=== PATIENT | female | born 1940 | race Caucasian/White ===

== ENCOUNTER 2021-07-16 22:20 | Inpatient (IN) | payer MEDICARE ==
[~2021-07-16] VITALS: Ht 149.9 cm; Wt 110.5 kg
--- NOTE | 2021-07-16 22:25 | NUR ---
PT ARRIVED VIA EMS AND TRIAGED IN ROOM. VOMITED UPON ARRIVAL. WAS GIVEN ZOFRAN IN ROUTE.
--- NOTE | 2021-07-16 23:51 | NUR ---
MULTIPLE ATTEMPTS BY STAFF/LAB TO OBTAIN BLOOD AND SECOND IV SITE WITHOUT SUCCESS. WILL HYDRATE WITH IV FROM EMS/ GUAGE AND TRY AGAIN LATER.
[2021-07-17] VITALS (18 sets, daily range): BP systolic 93–156; BP diastolic 47–73
[2021-07-17 00:15] LABS: HEMATOCRIT 43.5 % (37.0-47.0); HEMOGLOBIN 14.4 g/dl (12.0-16.0); IMMATURE GRANULOCYTES 0.2 % (0.0-5.0); MEAN CELL VOLUME 91.2 fL CALC (80.0-100.0); MEAN CORPUSCULAR HGB 30.2 pG CALC (26.0-32.0); MEAN CORPUSCULAR HGB CONC 33.1 g/dL CAL (32.0-36.0); NEUT# 14.96 thou/uL (2.00-7.15); RED BLOOD COUNT 4.77 mill/uL (4.20-5.60); RED CELL DISTRI WIDTH 12.2 % (11.5-15.5)
[2021-07-17 00:29] LABS: ALBUMIN 4.5 g/dL (3.2-5.0); ALKALINE PHOSPHATASE 118 u/l (38-126); AMYLASE 75 u/l (30-110); ANION GAP 17 (6-22 (CALC)); BILIRUBIN, TOTAL 0.7 mg/dL (0.0-1.4); BUN 26 mg/dL (8-23); BUN/CREATININE RATIO 34 (12-20 (CALC)); CARBON DIOXIDE 24 mmol/l (22-30); CHLORIDE 103 mmol/l (95-108); CREATININE 0.8 mg/dL (0.5-1.0); GFR > 60 ML/MIN (>=60 (CALC)); GFR FOR AFR.AMER. > 60 ML/MIN (>=60 (CALC)); LIPASE 43 u/l (23-300); POTASSIUM 4.1 mmol/l (3.5-5.1); SGOT/AST 30 u/l (9-36); SODIUM 140 mmol/l (137-146)
--- NOTE | 2021-07-17 01:00 | NUR ---
PT STARTED WITH ORAL CONTRAST.
--- NOTE | 2021-07-17 01:30 | NUR ---
SECOND DOSE GIVEN. TOLERATING WELL.
--- NOTE | 2021-07-17 02:00 | NUR ---
UNABLE TO TAKE CONTRAST DO TO PAIN AND NAUSEA. NOTIFIED.
--- NOTE | 2021-07-17 02:30 | NUR ---
SECOND DOSE OF CONTRAST GIVEN.
--- NOTE | 2021-07-17 02:30 | NUR ---
PT WAS OFFERED PAIN MEDICATION...PT DECLINED. GIVEN PHENERGAN/PROTONIX.
--- NOTE | 2021-07-17 04:50 | NUR ---
2ND IV SITE OBTAINED AND 2ND BLOOD CULTURE/LACTIC/BLOOD TOP OBTAINED. PT RESTING. NAD. PT WILL BE GOING TO FLOOR.
--- NOTE | 2021-07-17 05:20 | NUR ---
PATIENT ADMITTED TO [facility] ROOM 270 VIA STRETCHER. ALERT AND ORIENTED. ABLE TO MAKE NEEDS KNOWN. ASSESSMENT COMPLETE AT THIS TIME. ORIENTED PATIENT TO ROOM, CALL LIGHT AND TV. PATIENT NPO STATUS. CALL LIGHT AND BELONGINGS IN REACH.
--- NOTE | 2021-07-17 05:50 | NUR ---
PT RESTING...TAKEN TO FLOOR. REPORT GIVEN TO DELMI DONNELLY/MED SURG AFTER PT ARRIVED TO FLOOR. COLORING MACHINE OPERATOR TO BRING ZOSYN TO FLOOR. PT ON POCKET MONITOR.
[2021-07-17 06:13] LABS: ACT PARTIAL THROMBO TIME 22.6 SECONDS (20.0-32.5); PROTHROMBIN TIME 10.1 SECONDS (9.0-12.5)
--- NOTE | 2021-07-17 07:32 | NUR ---
PT TAKEN VIA STRETCHER ACCOMPANIED BY Obdulia TOVAR AND MARTINEZ RN. PT NAUSEOUS & DRY HEAVING. X2 IV SITES; #22G RH-EMS SITE AND #22G LT THUMB. FAMILY UPDATED ON SURGERY; FAMILY MEMBERS WITH CONCERNS REGARDING PROCEDURE. C ALETHA RN IN OR NOTIFIED AND FAMILY PHONE NUMBER PROVIDED , OR STAFF/MD TO CALL FAMILY PRIOR TO SURGICAL PROCEDURE.
--- NOTE | 2021-07-17 10:08 | NUR ---
PT TO BE TRANSFERRED TO ICU BED8 POST-OP. REPORT GIVEN TO DAVEY AWAD.
--- NOTE | 2021-07-17 11:30 | NUR ---
PERSONAL BELONGINGS TAKEN TO ICU BED 8; UPPER AND LOWER DENTURES ALSO IN DENTURE CUP LEFT IN ROOM. TRANSFER ORDER FAXED TO REC
--- NOTE | 2021-07-17 11:30 | NUR ---
PT ARRIVED FROM OR, BEDSIDE REPORT FROM RN, VSS, PT INTUBATED AND SEDATED, RT AT BEDSIDE TO MANAGE VENT, PT PLACED ON MONITOR, NO S/S OF DISTRESS NOTED. LEGER IN PLACE DRAINING TO GRAVITY, [address], SURGICAL SITE DRESSING TO ABDOMEN CLEAN DRY AND INTACT.
--- NOTE | 2021-07-17 13:14 | NUR ---
CALLED AND UPDATED CHARLOTTE PATEL AT [phone] ON PT CONDITION
[2021-07-17 13:18] LABS: HEMATOCRIT 42.6 % (37.0-47.0); HEMOGLOBIN 13.7 g/dl (12.0-16.0); IMMATURE GRANULOCYTES 0.1 % (0.0-5.0); MEAN CELL VOLUME 92.8 fL CALC (80.0-100.0); MEAN CORPUSCULAR HGB 29.8 pG CALC (26.0-32.0); MEAN CORPUSCULAR HGB CONC 32.2 g/dL CAL (32.0-36.0); NEUT# 6.94 thou/uL (2.00-7.15); RED BLOOD COUNT 4.59 mill/uL (4.20-5.60); RED CELL DISTRI WIDTH 12.6 % (11.5-15.5)
[2021-07-17 13:40] LABS: ALKALINE PHOSPHATASE 59 u/l (38-126); ANION GAP 9 (6-22 (CALC)); BUN 20 mg/dL (8-23); BUN/CREATININE RATIO 35 (12-20 (CALC)); CARBON DIOXIDE 24 mmol/l (22-30); CHLORIDE 111 mmol/l (95-108); CREATININE 0.6 mg/dL (0.5-1.0); GFR > 60 ML/MIN (>=60 (CALC)); GFR FOR AFR.AMER. > 60 ML/MIN (>=60 (CALC)); POTASSIUM 3.6 mmol/l (3.5-5.1); SGOT/AST 36 u/l (9-36); SODIUM 140 mmol/l (137-146)
[2021-07-17 13:42] LABS: ALBUMIN 2.5 g/dL (3.2-5.0); BILIRUBIN, TOTAL 1.2 mg/dL (0.0-1.4)
--- NOTE | 2021-07-17 13:45 | NUR ---
PT SON AT BEDSIDE FOR VISIT, UPDATED HIM ON PT CONDITION
--- NOTE | 2021-07-17 14:11 | NUR ---
UNABLE TO OBTAIN MED LIST. PT IS FROM [place], FAMILY UNABLE TO ANSWER QUESTIONS ABOUT MEDS, DID NOT SUPPLY A LIST OR PHARMACY WHERE PT FILLS, AND PT IS CURRENTLY INTUBATED. GINNY GONZALEZ.
--- NOTE | 2021-07-17 15:05 | NUR ---
AT BEDSIDE. STATED TO CALL HIM BEFORE STARTING ANY VASOPRESSORS.
--- NOTE | 2021-07-17 15:45 | NUR ---
KUMAR GROSS ROUNDING AT BEDSIDE
--- NOTE | 2021-07-17 19:15 | NUR ---
remains sedated. vent cont assisted by pt. open hearth stockyard supervisor shows sinus rhythm hr 91. ivf infusing per rt subcl tlc. ntg conts to lis draining tea colored. abd dsg cdi. no bowel sounds. katty x3 in place. escalante cath in place. urine dk yellow. bilat scds, wrist restraints & fall precautions cont. turned & repositioned. requires total care for all needs.
--- NOTE | 2021-07-17 21:00 | NUR ---
urine spec collected & sent to lab. urometer placed.
[2021-07-17 21:24] LABS: URINE BILIRUBIN - DIPSTICK NEGATIVE (NEGATIVE); URINE BLOOD DIPSTICK TRACE-INTACT (NEGATIVE); URINE COLOR YELLOW; URINE GLUCOSE - DIPSTICK NEGATIVE (NEGATIVE); URINE KETONE NEGATIVE (NEGATIVE); URINE LEUK ESTERASE NEGATIVE (NEGATIVE); URINE PH 5.5 (4.5-8.0); URINE PROTEIN - DIPSTICK NEGATIVE (NEG-TRACE); URINE SPECIFIC GRAVITY >=1.030; URINE UROBILINOGEN - DIPSTICK 0.2 E.U./dL (0.2)
[2021-07-17 21:26] LABS: URINE NITRITE - DIPSTICK NEGATIVE (Negative)
[2021-07-18] VITALS (14 sets, daily range): BP systolic 89–129; BP diastolic 42–61
--- NOTE | 2021-07-18 00:01 | NUR ---
cont to have minimal uop. ivf cont. no distress. speech and drama teacher shows sinus rhythm pvcs hr 78.
--- NOTE | 2021-07-18 01:00 | NUR ---
bp 89/50. prop decreased to 15mcg/kg/min
--- NOTE | 2021-07-18 02:00 | NUR ---
vent cont assisted by pt. arouses easily. nodding appropriately to questions asked.
--- NOTE | 2021-07-18 04:30 | NUR ---
blood drawn & sent to lab.
--- NOTE | 2021-07-18 05:00 | NUR ---
bath & linen change x2 assists. follows basic commands. no distress.
[2021-07-18 05:15] LABS: IMMATURE GRANULOCYTES 0.3 % (0.0-5.0); MEAN CELL VOLUME 94.5 fL CALC (80.0-100.0); MEAN CORPUSCULAR HGB 30.5 pG CALC (26.0-32.0); MEAN CORPUSCULAR HGB CONC 32.2 g/dL CAL (32.0-36.0); NEUT# 16.15 thou/uL (2.00-7.15); RED BLOOD COUNT 3.84 mill/uL (4.20-5.60)
[2021-07-18 05:24] LABS: HEMATOCRIT 36.3 % (37.0-47.0); HEMOGLOBIN 11.7 g/dl (12.0-16.0)
--- NOTE | 2021-07-18 05:30 | NUR ---
rt here. abgs drawn.
[2021-07-18 05:32] LABS: ALBUMIN 2.1 g/dL (3.2-5.0); ALKALINE PHOSPHATASE 41 u/l (38-126); ANION GAP 10 (6-22 (CALC)); BILIRUBIN, TOTAL 0.8 mg/dL (0.0-1.4); BUN 26 mg/dL (8-23); BUN/CREATININE RATIO 25 (12-20 (CALC)); CARBON DIOXIDE 21 mmol/l (22-30); CHLORIDE 114 mmol/l (95-108); GFR 53 ML/MIN (>=60 (CALC)); GFR FOR AFR.AMER. > 60 ML/MIN (>=60 (CALC)); MAGNESIUM 1.7 mg/dL (1.6-2.3); POTASSIUM 3.7 mmol/l (3.5-5.1); SGOT/AST 26 u/l (9-36); SODIUM 142 mmol/l (137-146); TOTAL PROTEIN 4.4 g/dL (6.3-8.2)
--- NOTE | 2021-07-18 05:45 | NUR ---
xray here. pcxr obtained.
--- NOTE | 2021-07-18 06:35 | NUR ---
blood drawn & sent to lab.
--- NOTE | 2021-07-18 06:51 | NUR ---
FIO2 DECREASED TO 30%
--- NOTE | 2021-07-18 07:10 | NUR ---
pt report received from echo technologist. pt responding to questions, denies any pain at this time. diprovan still infusing at 7.5, pt remains on vent, resp tech lowered settings on vent, pt at 100%, b/p staying in the lower 100's, 3 katty drains draining, dressing dry. will continue to moniter.
--- NOTE | 2021-07-18 08:14 | NUR ---
dr. colvin here to examine pt. state to extubate pt, and to give bolus for blood pressure and then will change fluids to d5. pt alert/oriented.
--- NOTE | 2021-07-18 08:37 | NUR ---
PT. EXTUBATED AND PLACED ON 2L.
--- NOTE | 2021-07-18 08:37 | NUR ---
PT EXTUBATED AND PT TOLERATED WELL, RESTRAINED DISCONTINUED. PT ALERT/ORIENTED, ADVISED THAT WE WILL KEEP HER NPO FOR SEVERAL MORE DAYS PER DR. PT VOICES UNDERSTANDING.
--- NOTE | 2021-07-18 08:54 | NUR ---
ANGEL COLE HERE TO EXAMINE PT.
--- NOTE | 2021-07-18 12:00 | NUR ---
pt becoming slightly restless, hands moving constantly, states she cant get comfortable, states ng tube is irritating and wants it out. moved pt up in bed, gave pt warm blankets, placed a different nose attachemnt on ng tube, pt remains restless.
[2021-07-18] MEDS ORDERED: LOSARTAN POTASS50 MG PO (13:29)
[2021-07-18] MEDS ORDERED: GABAPENTIN100 MG PO (13:29)
[2021-07-18] MEDS ORDERED: FUROSEMIDE20 MG PO (13:30)
--- NOTE | 2021-07-18 13:35 | NUR ---
son in law at bedside, medications brought in and reconcilled. pt states he has taken her mind off of nose/throat irritation. not as restless as before, vital signs remain stable., no n/v, no distress noted.
--- NOTE | 2021-07-18 15:31 | NUR ---
pt resting at this time, no complaints, pt has been constantly on phone
--- NOTE | 2021-07-18 17:00 | NUR ---
pt states painis getting worse in abdomin, especially with movement. 0.5 mg dilaudid given, vital signs stable
--- NOTE | 2021-07-18 18:19 | NUR ---
PT RESTING QUIETLY AT THIS TIME. IV FLUIDS INFUSING, LEGER DRAINING. MINIMAL AMOUNT OF BLOOD FROM 3 JEAN DRAINS, AND NG TUBE IS DRAINING TEA COLOR,MINIMAL AMOUNT ON INTERMITTENT SUCTION.
--- NOTE | 2021-07-18 18:49 | NUR ---
SOUTHAR RECEIVED FROM DELMI BEARDEN. PATIENT IN BED TALKING ON PHONE.
--- NOTE | 2021-07-18 20:15 | NUR ---
ASSESSMENT COMPLETE. PATIENT AWAKE, ALERT AND ORIENTED TO PERSON AND TIME. PATIENT MILDLY CONFUSED BUT EASILY REDIRECTED. DENIES PAIN AT THIS TIME. JEAN DRAINS X3 EMPTIED. ABDOMINAL DRESSING CLEAN, DRY AND INTACT. SCD'S BILATERALLY. BED IN LOW POSITION, LOCKED. CALL LIGHT WITHIN REACH, INSTRUCTED ON USE AND TO CALL FOR ASSISTANCE WHEN NEEDED.
--- NOTE | 2021-07-18 22:31 | NUR ---
RESTING QUIETLY, EYES CLOSED. VSS, SATURATION 94% ROOM AIR.
[2021-07-19] VITALS (11 sets, daily range): BP systolic 98–158; BP diastolic 46–82
--- NOTE | 2021-07-19 00:03 | NUR ---
PATIENT RESTING QUIETLY. MIDNIGHT MEDS ADMINISTERED. PATIENT DENIES PAIN AT THIS TIME. NO DISTRESS NOTED. CALL LIGHT WITHIN REACH.
--- NOTE | 2021-07-19 01:21 | NUR ---
PATIENT CALLING OUT FOR HELP, C/O DRY MOUTH. ORAL CARE PROVIDED AND LIP BALM APPLIED.
[2021-07-19 04:44] LABS: IMMATURE GRANULOCYTES 0.5 % (0.0-5.0); MEAN CELL VOLUME 94.3 fL CALC (80.0-100.0); MEAN CORPUSCULAR HGB 30.1 pG CALC (26.0-32.0); MEAN CORPUSCULAR HGB CONC 31.9 g/dL CAL (32.0-36.0); NEUT# 13.46 thou/uL (2.00-7.15); RED BLOOD COUNT 3.16 mill/uL (4.20-5.60); RED CELL DISTRI WIDTH 13.5 % (11.5-15.5)
[2021-07-19 04:45] LABS: HEMATOCRIT 29.8 % (37.0-47.0); HEMOGLOBIN 9.5 g/dl (12.0-16.0)
--- NOTE | 2021-07-19 04:48 | NUR ---
PATIENT APPEARS ANXIOUS, STATES SHE IS HAVING DIFFICULTY BREATHING. PATIENT 98% ON 2L/NC, LUNGS SOUND CLEAR. PATIENT HAS HISTORY OF CHF, IVF DECREASED TO 50ML/HR FROM 125/HR. WILL CONTINUE TO MONITOR.
[2021-07-19 05:08] LABS: ANION GAP 7 (6-22 (CALC)); BUN 34 mg/dL (8-23); BUN/CREATININE RATIO 33 (12-20 (CALC)); CARBON DIOXIDE 24 mmol/l (22-30); CHLORIDE 114 mmol/l (95-108); GFR 53 ML/MIN (>=60 (CALC)); GFR FOR AFR.AMER. > 60 ML/MIN (>=60 (CALC)); MAGNESIUM 1.9 mg/dL (1.6-2.3); POTASSIUM 3.6 mmol/l (3.5-5.1); SODIUM 142 mmol/l (137-146)
--- NOTE | 2021-07-19 06:50 | NUR ---
ASSUMED CARE OF PT FROM MEGAN AWAD, VSS, PT RESTING IN BED, NO S/S OF DISTRESS NOTED. DENIES ANY CURRENT NEEDS
--- NOTE | 2021-07-19 08:31 | NUR ---
PT MEDICATED FOR PAIN, PT C/O FEELING SOB BUT UPON FURTHER DISSCUSSION SHE IS NOT DEEP BREATHING, COUGHING FOR FEAR OF PAIN TO ABDOMEN,APPEARS ANXIOUS. EDUCATED ON IMPORTANCE OF DEEP BREATHING AFTER SURGERY. WILL HAVE RT PROVIDE INCENTIVE SPIROMETER. ALSO DEMONSTRATED WITH PT THE SPLINTING TECHINQUE OF COUGHING WITH PILLOW AGAINST SURGICAL SITE. ROUNDING AT BEDSIDE.
--- NOTE | 2021-07-19 09:29 | NUR ---
RADIOLOGY AT BEDSIDE FOR CHEST XRAY
--- NOTE | 2021-07-19 10:20 | NUR ---
UPDATED DAUGHTER IN LAW VIA TELEPHONE
--- NOTE | 2021-07-19 11:53 | NUR ---
PT IS CONFUSED. SHE BELIEVES SHE IS IN SOMEONES HOME, THAT HER MONEY IS MISSING, DOESNT REMEMBER HAVING SURGERY AND IS AFRAID HER FAMILY HAS PLACED HER IN A PENITENTIARY. ATTEMPS TO REORIENT PT UNSUCCESSFUL
--- NOTE | 2021-07-19 12:30 | NUR ---
PT DAUGHTER IN LAW AT BEDSIDE TO HELP CALM AND REORIENT PT.
--- NOTE | 2021-07-19 14:00 | NUR ---
DAUGHTER IN LAW, SULAIMAN, TOOK PT CELL PHONE HOME TO CHARGE
--- NOTE | 2021-07-19 14:10 | NUR ---
DAUGHTER IN LAW LEFT. PT IS CALM, ORIENTED TO PERSON, PLACE AND TIME. RESTING IN BED. DENIES NEEDS
--- NOTE | 2021-07-19 16:31 | NUR ---
DR.FIORUCCI HILL AT BEDSIDE, REMOVED NG TUBE.
--- NOTE | 2021-07-19 18:05 | NUR ---
PT HAS BECOME INCREASINGLY CONFUSED AND COMBATIVE THROUGHOUT THE AFTERNOON DESIPITE REPEATED MEASURES OF REORIENTATION, REPOSITIONING AND REASSURANCE. PT INSISTED PEOPLE WERE OUTSIDE HER ROOM THAT SHE KNEW AND TO LET THEM IN TO SEE HER. WHEN I EXPLAINED IT WAS JUST STAFF AND NOT FAMILY OUTSIDE OF HER RROM SHE CALLED ME A "LYING BITCH" AND THREW A CUP ICE IN MY FACE. NOTIFIED KUMAR MERCADO OF PTS INCREASING AGITATION. ORDERS RECIEVED AND ENTERED.
--- NOTE | 2021-07-19 18:50 | NUR ---
SBAR REPORT RECEIVED FROM DELMI MARISCAL. PATIENT RESTING QUIETLY IN BED.
--- NOTE | 2021-07-19 20:22 | NUR ---
ASSESSMENT COMPLETE. PATIENT DROWSY, AROUSED BY VOICE. VSS. NO DISTRESS NOTED. DENIES PAIN. ABDOMINAL DRESSING CLEAN DRY AND INTACT, JEAN DRAINS X3 PATENT. LEGER TO GRAVITY, CLEAR KHUSHI URINE. SCD'S BILATERALLY. NO C/O PAIN AT THIS TIME. BED IN LOW POSITION, LOCKED. CALL LIGHT WITHIN REACH.
--- NOTE | 2021-07-19 23:53 | NUR ---
COMPLETE BED BATH WITH LINEN CHANGE PROVIDED, PATIENT TOLERATED FAIR. SMALL SMEAR OF STOOL ON PAD BUT NO BM. JEAN DRAINS X3 EMPTIED. 875ML CLEAR KHUSHI URINE EMPTIED FROM LEGER. PATIENT REPOSITIONED FOR COMFORT. BED IN LOW POSITION, LOCKED. DENIES PAIN AT THIS TIME. CALL LIGHT WITHIN REACH.
[2021-07-20] VITALS (12 sets, daily range): BP systolic 118–180; BP diastolic 47–91
--- NOTE | 2021-07-20 01:33 | NUR ---
PATIENT AGITATED. PULLING AT MONITOR CORDS AND YELLING AT NURSE. PATIENT ALSO YELLS OUT IN PAIN STATING HER BACK HURTS. RATES PAIN 15 ON PAIN SCALE 0-10, DILAUDID 1MG GIVEN. OFFERED TO REPOSITION FOR COMFORT, PATIENT DECLINED OFFER AT THIS TIME.
[2021-07-20 04:36] LABS: HEMATOCRIT 26.3 % (37.0-47.0); HEMOGLOBIN 8.4 g/dl (12.0-16.0); IMMATURE GRANULOCYTES 0.6 % (0.0-5.0); MEAN CELL VOLUME 94.6 fL CALC (80.0-100.0); MEAN CORPUSCULAR HGB 30.2 pG CALC (26.0-32.0); MEAN CORPUSCULAR HGB CONC 31.9 g/dL CAL (32.0-36.0); NEUT# 12.41 thou/uL (2.00-7.15); RED BLOOD COUNT 2.78 mill/uL (4.20-5.60); RED CELL DISTRI WIDTH 13.6 % (11.5-15.5)
--- NOTE | 2021-07-20 04:36 | NUR ---
RESTING QUIETLY. CALL LIGHT WITHIN REACH.
[2021-07-20 05:01] LABS: ANION GAP 6 (6-22 (CALC)); BUN 29 mg/dL (8-23); BUN/CREATININE RATIO 38 (12-20 (CALC)); CARBON DIOXIDE 27 mmol/l (22-30); CHLORIDE 114 mmol/l (95-108); CREATININE 0.8 mg/dL (0.5-1.0); GFR > 60 ML/MIN (>=60 (CALC)); GFR FOR AFR.AMER. > 60 ML/MIN (>=60 (CALC)); MAGNESIUM 2.1 mg/dL (1.6-2.3); POTASSIUM 3.3 mmol/l (3.5-5.1); SODIUM 145 mmol/l (137-146)
--- NOTE | 2021-07-20 05:11 | NUR ---
PATIENT WOKE FROM SLEEP AGITATED. PULLING OFF GOWN AND PULLING MEDICAL EQUIPMENT CORDS. PATIENT UPSET STATING "I GOT TO GET OUT OF HERE. YOU CAN'T KEEP ME AGAINST MY WILL." ATTEMPT TO DE-ESCALATE AND RE-ORIENT PATIENT WHICH SHE THEN RESPONDED "DON'T TALK TO ME YOU EVIL WITCH." PATIENT GIVEN ATIVAN AT THIS TIME. WILL CONTINUE TO MONITOR.
--- NOTE | 2021-07-20 06:05 | NUR ---
report received from Wyatt Harris RN
--- NOTE | 2021-07-20 06:20 | NUR ---
pt resting in bed with eyes closed; easily aroused to verbal stimuli; appears drowsy; assessment completed at this time; pt alert to person; pt alert to situation/ states "had surgery"; confused to time and place; calm and cooperative at this time; pt moans loudly; admits to pain, will medicate; no n/v noted per underwriter mortgage loan; resp even and unlabored; lungs clear/ diminished post bases; skin color wnl; o2 per nc 2L; hr reg; strong pulses; no edema noted; sr on monitor; abd soft/ tender with bs hypoactive to rlq/ruq; no bm noted per underwriter mortgage loan; no flatus witnessed at this time; escalante to gravity draining clear yellow urine; cath strap intact; TLC patent to right subclav; tpn infusing at 84cc/hr and ns at 16cc/hr; all lumens flushed/brisk blood aspirate noted; no redness or edema noted at site; dressing cdi to abd/ unable to assess incision; katty x3 intact to bulb suction with serosang drainage noted; bilat scds intact; repositioned; call light within reach; will continue to monitor
--- NOTE | 2021-07-20 07:12 | NUR ---
pt awake in bed; moaning loudly; manual writer inquires if pt is in pain; pt admits to pain but does not states #; repositioned; medicated; pt also noted to have remove gown and pulling at director of cardiac cath lab; redirected; sr on monitor; escalante to gravity; call light within reach; will continue to monitor
--- NOTE | 2021-07-20 08:35 | NUR ---
Dr Huerta and Dr Allison present at bedside to assess pt and discuss plan of care; dressing to be changed per verbal order; will continue to monitor
--- NOTE | 2021-07-20 08:48 | NUR ---
granddaughter Tatiana called this script writer; passcode verified; update provided
--- NOTE | 2021-07-20 09:15 | NUR ---
dressing changed to abd; midline line incision noted well approximated with jevon intact; no s/s of infection; no redness or drainage noted at incision; KATTY #1 to RLQ, KATTY #2 to RUQ, KATTY #3 to left upper abdomen; all drained as per orders; jevon intact to ruq, lat of katty site; dressing changed using 4x4 to midline incision, drain dressings to katty sites and secured with paper tape; legs repositioned; will continue to monitor
--- NOTE | 2021-07-20 10:10 | NUR ---
resting in bed with eyes closed; drowsy but easily arousable; offers no complaints; iv intact; escalante to gravity; sr on monitor; will continue to monitor
--- NOTE | 2021-07-20 10:47 | NUR ---
unable to add lactic acid to am labs; orders placed for lactic acid to be obtained in am
--- NOTE | 2021-07-20 12:15 | NUR ---
pt awake in bed; yelling loudly; stating "get it off of me"; pt crying and yelling; reorientation unsuccessful; pt has removed pulse ox probe and reeling machine setup operator; pt pulling at JEAN drains; pt strikes at this time abstract writer when attempting to reapply monitoring attachments; abstract writer remains at bedside for pt safety; monitoring attachments explained; call light within reach; will continue to monitor
--- NOTE | 2021-07-20 12:23 | NUR ---
Dr Huerta called per designer/writer; informed of pt increased agitation; pt becoming combative with designer/writer; ativan to be administered as well as zyprexa; pt yelling very loudly; pt has removed surgical dressing and pulling on JEAN drains; will continue to monitor
--- NOTE | 2021-07-20 12:45 | NUR ---
drowsy but arousable; continues to yell; dressing changed to midline incision and ruq katty site; katty's remains intact with sutures; abd binder placed at this time to assist with diversion of drains; repositioned to left side; ticket writer remains at bedside
--- NOTE | 2021-07-20 13:03 | NUR ---
ice chips provided and tolerated well; staff x2 attempting to assist to chair; pt declining; will attempt again
--- NOTE | 2021-07-20 13:21 | NUR ---
visitor present at bedside
--- NOTE | 2021-07-20 14:10 | NUR ---
awake; drowsy; so departed; iv intact and patent; escalante to gravity; sr/pvc on monitor; call light within reach; will continue to monitor
--- NOTE | 2021-07-20 14:50 | NUR ---
PT x2 at bedside to assist with activity/assist to chair; pt refused therapy
--- NOTE | 2021-07-20 15:40 | NUR ---
awake in bed; alert to person and whereabouts; admits to pain; requesting pain meds; increase in activity explained in great detail including risk of pneumonia by just staying in bed; pt agree with this telegraphic typewriter operator to be assisted to recliner; pt educated on pain and discomfort she may experience with activity and agree to plan of care; bottom dentures discovered in bed and placed in denture cup; pt to be assisted to recliner then medicated; will continue to monitor
--- NOTE | 2021-07-20 15:50 | NUR ---
pt assisted to recliner x2 max assist, pt id not assist with transfer; monitoring attachments connected; medicated with dilaudid as per request; will continue to monitor
--- NOTE | 2021-07-20 17:35 | NUR ---
Patient was very confused on this date and had difficulty keeping eyes open. Patient also had extreme difficulty speaking but was eventually able to say that she was not up to participating in PT. Based on patient's present predicament, PT will try to see patient again tomorrow.
--- NOTE | 2021-07-20 18:20 | NUR ---
pt max assist back to med; monitoring attachments applied; escalante to gravity; sr/pvc on monitor;
--- NOTE | 2021-07-20 19:45 | NUR ---
drowsy. secured entrance monitor shows sinus rhythm pvcs hr 78. bowel sounds hypoactive. dsg cdi. abd binder conts. katty x3 in place. escalante cath in place. urine clear yellow. bilat scds cont. turned & repositioned. does NOT assist with care.
--- NOTE | 2021-07-20 21:30 | NUR ---
awake. yelling out "you're trying to kill me." pt reoriented without success. pt returns to sleep after few minutes.
[2021-07-21] VITALS (12 sets, daily range): BP systolic 102–175; BP diastolic 48–89
--- NOTE | 2021-07-21 00:01 | NUR ---
sleeps for short while then awakens & begins to scream. turned & repositioned. pt yelling out "you're killing me." denies op pain. pt reassured.
--- NOTE | 2021-07-21 02:00 | NUR ---
resting quietly. no distress. spray drier operator helper shows sinus rhythm pvcs hr 92.
--- NOTE | 2021-07-21 04:45 | NUR ---
blood drawn & sent to lab.
[2021-07-21 05:22] LABS: HEMATOCRIT 27.1 % (37.0-47.0); HEMOGLOBIN 8.7 g/dl (12.0-16.0); IMMATURE GRANULOCYTES 0.8 % (0.0-5.0); MEAN CELL VOLUME 94.1 fL CALC (80.0-100.0); MEAN CORPUSCULAR HGB 30.2 pG CALC (26.0-32.0); MEAN CORPUSCULAR HGB CONC 32.1 g/dL CAL (32.0-36.0); NEUT# 11.95 thou/uL (2.00-7.15); RED BLOOD COUNT 2.88 mill/uL (4.20-5.60); RED CELL DISTRI WIDTH 13.3 % (11.5-15.5)
--- NOTE | 2021-07-21 05:30 | NUR ---
bath & linen change x2 assists.
[2021-07-21 05:33] LABS: ANION GAP 8 (6-22 (CALC)); BUN 26 mg/dL (8-23); BUN/CREATININE RATIO 38 (12-20 (CALC)); CARBON DIOXIDE 31 mmol/l (22-30); CHLORIDE 108 mmol/l (95-108); CREATININE 0.7 mg/dL (0.5-1.0); GFR > 60 ML/MIN (>=60 (CALC)); GFR FOR AFR.AMER. > 60 ML/MIN (>=60 (CALC)); MAGNESIUM 1.9 mg/dL (1.6-2.3); POTASSIUM 3.2 mmol/l (3.5-5.1); SODIUM 144 mmol/l (137-146)
--- NOTE | 2021-07-21 08:00 | NUR ---
pt awake in bed; no apparent distress noted; pt offers no complaints; pt alert and oriented; very pleasant and cooperative; denies pain; no n/v noted; resp even and unlabored; wheezing throughout noted; skin color wnl; o2 per nc at 2L; manager review dry cough noted; IS at bedside; pt educated on use and able to pull 500ml max X10 reps; pt instructed to use q1hr x10 reps; hr reg; strong pulses; trace edema noted to hands and ankles; sr/pvc on monitor; abd soft with bs present; no bm noted per web content writer; pt admits to passing flatus; ice chips provided; escalante to gravity draining clear yellow urine; cath strap intact; TLC patent to right subclavian; tpn infusing at 84cc/hr; no redness or edema noted at site; abd dressing changed using 4x4, drain gauzes and paper tape; jevon intact to midline with no s/sx of infection noted; well approximated; JEAN x3 intact with sutures; scds removed at this time; pt assisted to recliner x3 max assist; pt was able to assist more with transfer this am; call light within reach; will continue to monitor
--- NOTE | 2021-07-21 09:08 | NUR ---
awake in recliner; offers no complaints; denies pain; meds explained and administered; pt able to pull 500ml on IS with poor effort; sr/pvc on monitor; call light within reach; will continue to monitor
--- NOTE | 2021-07-21 09:15 | NUR ---
Dr Holder present at bedside to assess pt and discuss plan of care
--- NOTE | 2021-07-21 09:51 | NUR ---
prn bronchdlator therapy called for as per pt c audible wheeze in upper airways. spo2 on 2l nc = 100, good aeration ascultated throughout with bilateral bases diminished. wheeze ascultated over pt throat. pt speaking in complete sentences and laughing.
--- NOTE | 2021-07-21 10:14 | NUR ---
awake in recliner; continues with wheezing after neb tx; o2 sat 98%; cxr to be obtained; escalante to gravity; pt becoming slightly agitated; sr/pvc on monitor; escalante to gravity; will continue to monitor
--- NOTE | 2021-07-21 10:30 | NUR ---
awake in recliner; yelling/screaming; pt states "you bitches are trying to kill me", you're killing me, you're killing me; pt states "i'm hurting"; telegraphic typewriter installer attempt to medicated pt; pt grab this telegraphic typewriter installer's hand and squeeze tightly then proceeds to pull at central line; additional staff in room; medicated as per orders for complaints of pain; telegraphic typewriter installer remains at bedside; st on monitor;
--- NOTE | 2021-07-21 10:42 | NUR ---
xray present at bedside
--- NOTE | 2021-07-21 11:25 | NUR ---
awake in recliner; conversing amongst self; cooperative with care at this time; JEAN #2 removed per MD orders; pt tolerated well; dressing applied over site; accucheck obtained; meal provided; iv intact and patent; will continue to monitor
--- NOTE | 2021-07-21 12:00 | NUR ---
awake in recliner; offers no complaints; denies pain; iv intact intact and patent; escalante to gravity; sr/pvc on monitor; call light within reach; will continue to monitor
--- NOTE | 2021-07-21 13:00 | NUR ---
visitor present at bedside
--- NOTE | 2021-07-21 14:03 | NUR ---
resting in recliner; offers no complaints; no apparent distress noted; iv intact and patent; escalante to gravity; sr/pvc on monitor; call light within reach; will continue to monitor
--- NOTE | 2021-07-21 15:01 | NUR ---
pt yelling out "help me, help me"; pt admits to hurting "really bad"; opt unable to give this residential mortgage underwriter a score; medicated as per orders; staff attempting tpo place pt back to bed but pt refusing; sr on monitor; escalante to gravity; will continue to monitor
--- NOTE | 2021-07-21 15:07 | NUR ---
report called to Sonam Shaffer RN; pt to transfer to room 280 tele;
--- NOTE | 2021-07-21 15:51 | NUR ---
pt to remain in ICU as overflow;
--- NOTE | 2021-07-21 16:00 | NUR ---
pt transferred back to bed x3 max assist; pt made no attempt to assist staff
--- NOTE | 2021-07-21 16:18 | NUR ---
resting in bed with eyes closed; no distress noted; resp even and unlabored; iv intact and patent; escalante to gravity; sr/pvc on monitor; o2 per nc; call light within reach; will continue to monitor
--- NOTE | 2021-07-21 18:12 | NUR ---
pt awake in bed; no distress noted; moans out occasionally; deny needs for pain meds; iv intact and patent; escalante to gravity; declined meal at this time; abd binder intact; dressing cdi to abd; katty's intact; call light within reach
--- NOTE | 2021-07-21 19:30 | NUR ---
awake. confused. o2 cont per nc. court recording monitor shows sinus rhythm pvcs hr 81. rt subcl tlc in place. tpn infusing @ 84cchr. dsg cdi. abd binder cont. katty x2 in place. escalante cath in place. urine clear yellow. bilat scds & fall precautions cont.
--- NOTE | 2021-07-21 20:30 | NUR ---
confused. yelling out "help me." attempted to reorient w/o success
[2021-07-22] VITALS (11 sets, daily range): BP systolic 131–201; BP diastolic 57–80
--- NOTE | 2021-07-22 00:01 | NUR ---
talking as if to someone in the room. classroom monitor shows sinus rhythm pvcs.
--- NOTE | 2021-07-22 02:00 | NUR ---
naps for short intervals. remains confused. ivf cont.
--- NOTE | 2021-07-22 04:30 | NUR ---
blood drawn & sent to lab.
[2021-07-22 04:50] LABS: HEMATOCRIT 26.2 % (37.0-47.0); HEMOGLOBIN 8.6 g/dl (12.0-16.0); IMMATURE GRANULOCYTES 1.6 % (0.0-5.0); MEAN CELL VOLUME 93.9 fL CALC (80.0-100.0); MEAN CORPUSCULAR HGB 30.8 pG CALC (26.0-32.0); MEAN CORPUSCULAR HGB CONC 32.8 g/dL CAL (32.0-36.0); NEUT# 9.79 thou/uL (2.00-7.15); RED BLOOD COUNT 2.79 mill/uL (4.20-5.60); RED CELL DISTRI WIDTH 13.2 % (11.5-15.5)
[2021-07-22 05:03] LABS: ALBUMIN 2.3 g/dL (3.2-5.0); ANION GAP 3 (6-22 (CALC)); BILIRUBIN, TOTAL 0.8 mg/dL (0.0-1.4); BUN 22 mg/dL (8-23); BUN/CREATININE RATIO 38 (12-20 (CALC)); CARBON DIOXIDE 37 mmol/l (22-30); CHLORIDE 106 mmol/l (95-108); CREATININE 0.6 mg/dL (0.5-1.0); GFR > 60 ML/MIN (>=60 (CALC)); GFR FOR AFR.AMER. > 60 ML/MIN (>=60 (CALC)); POTASSIUM 3.3 mmol/l (3.5-5.1); SGOT/AST 21 u/l (9-36); SODIUM 143 mmol/l (137-146); TOTAL PROTEIN 4.9 g/dL (6.3-8.2)
[2021-07-22 05:08] LABS: ALKALINE PHOSPHATASE 90 u/l (38-126)
--- NOTE | 2021-07-22 05:45 | NUR ---
incont lg amt liquid brown stool. bed bath & linen chg x2 assists.
--- NOTE | 2021-07-22 06:33 | NUR ---
this public relations writer has asked pt several times this shift if she needs pain med but pt has refused.
--- NOTE | 2021-07-22 07:10 | NUR ---
pt awake in bed; no apparent distress noted; assessment completed at this time; pt alert and oriented; confusion noted with general statements made per pt; pt denies pain; no n/v noted; resp even and unlabored; lungs with wheezing throughout; skin color wnl; o2 per nc; loose cough noted; IS at bedside; pt instructed to demo use and declined; hr reg; strong pulses; trace edema noted; sr/pvc on monitor; bilat scds intact; abd soft with bs present; lg liq brown stool noted to brief; pericare to be administered; escalante to gravity draining clear yellow urine; TLC patent to right subclav with TPN infusing at 84cc/hr; no redness or edema noted at site; abd incisional dressing cdi; no dranage noted; katty drsg sites reinforced; katty's x2 intact with sutures; plan of care/ meds explained; call light within reach; will continue to monitor
--- NOTE | 2021-07-22 07:50 | NUR ---
awake in bed; meds given; sr/pvc on monitor; escalante to gravity; call light within reach; will continue to monitor
--- NOTE | 2021-07-22 08:45 | NUR ---
pt awake and yelling out very loudly; pt requesting "someone Protestant" to help me; pt reoriented and reassured all staff are licensed healthcare providers; pt with complaints of "bloating"; screaming needing the bathroom; placed on a bedpan x4 staff assist; pt making no effort to assist staff with care; pericare provided after liquid brown stool; catheter care provided; pt to be medicated as per request; staff remains at bedside; will continue to monitor
--- NOTE | 2021-07-22 09:36 | NUR ---
Dr Holder present on unit to assess pt and discuss plan of care; pt to be transferred to med surg tele
--- NOTE | 2021-07-22 09:55 | NUR ---
report given to DELMI Wu; pt to transfer to med surg tele 270
--- NOTE | 2021-07-22 10:16 | NUR ---
awake in bed; no distress noted; sr/pvc on monitor; escalante to gravity; call light within reach; will continue to monitor
--- NOTE | 2021-07-22 10:20 | NUR ---
call received from SULAIMAN (family); passcode verified; update provided including transfer to [facility] surg 270
--- NOTE | 2021-07-22 10:37 | NUR ---
pt transferred to med surg tele (tele in place) room 270 in stable condition; RN at bedside; pt settled in bed; o2 per nc; escalante to gravity; drsgs cdi to abd; binder intact;
--- NOTE | 2021-07-22 11:04 | NUR ---
family Donna called per administrative underwriter; Donna confirms that patient's black purse is at home and secured; informed pt of this information
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
--- NOTE | 2021-07-22 16:00 | NUR ---
C/O BACK AND ABD PAIN, STATED SHE WANTS TO GET UP AND GET MOVING SO SHE CAN GET BACK TO HER NORMAL ROUTINE SHE LIVES ALONE AND HAS BEEN INDEPENDENT AND ACTIVE ALL HER LIFE, ADVISED PT WILL WORK WITH HER TOMORROW AND GET HER MOVING AGAIN. PAIN CONCERN ADDRESSED, CALL JOHNSON IN REACH.
--- NOTE | 2021-07-22 17:00 | NUR ---
SLEEPING, BREATHING EVEN BUT SHALLOW, NO SIGN DISCOMFORT, CALL JOHNSON IN REACH.
--- NOTE | 2021-07-22 18:31 | NUR ---
AWAKE AT THIS TIME BUT LETHARGIC, APPROPRIATE, LIQUIDS OFFERED, SMALL PORTIONS TAKEN, WILL CONTINUE TO MONITOR.
--- NOTE | 2021-07-22 19:15 | NUR ---
PATIENT CALLING OUT ASKING FOR HELP. RESPONDED TO PATIENT ROOM AND C/O SEVERE LEFT ABD AND BACK PAIN-10/10 ON PAIN SCALE. PATIENT MEDICATED WITH DILAUDID 1MG IVP VIA RIGHT UPPER CHEST TLC. PATIENT WITH O2 VIA NASAL CANNULA IN PLACE AT 2LPM-O2 SATS 99%. LEGER PATENT AND DRAINING KHUSHI URINE. TELE MONITOR IN PLACE-LAST READING WAS 81 PAC'S. ABD BINDER IN PLACE-[address] IN PLACE. SAFETY PRECAUTIONS REINFORCED. CALL LIGHT IN REACH. WILL CONT TO MONITOR.
--- NOTE | 2021-07-22 23:09 | NUR ---
PATIENT FOUND TRYING TO GET OUT OF BED. MAX ASSIST TO GET BACK INTO BED. PATIENT REPOSITIONED IN BED. LEGER AND [place]-CARE WAS GIVEN. PATIENT MEDICATED FOR POST-OP PAIN 7/10 ON PAIN SCALE WITH DILAUDID 1MG IVP ORDERED. WORKING WITH PATIENT TO USE IS-POOR EFFORT. NEEDS ENCOURAGMENT-PATIENT IS NOW WHEEZING. FEET ELEVATED ON PILLOWS. TAKING PO FLUIDS WITHOUT ANY DIFFICULTY. BOTH JEAN DRAINS EMPTIED FOR SMALL AMT OF FLUID. SEE I&O. BED ALARM IN PLACE FOR PATIENT SAFETY. SAFETY PRECAUTIONS REINFORCED WITH PATIENT. CALL LIGHT IN REACH. WILL CONT TO MONITOR.
[2021-07-23] VITALS (8 sets, daily range): BP systolic 135–188; BP diastolic 58–75
--- NOTE | 2021-07-23 00:20 | NUR ---
PATIENT RESTING IN BED WITH HOB ELEVATED. EYES ARE CLOSED AND RESPS ARE SHALLOW AND EVEN. TELE MONITOR IN PLACE. ZOSYN HUNG ORDERED VIA RIGHT UPPER CHEST TLC. LEGER PATENT AND DRAINING KHUSHI URINE. BED ALARM IN PLACE FOR PATIENT SAFETY. CALL LIGHT IN REACH. WILL CONT TO MONITOR.
--- NOTE | 2021-07-23 01:29 | NUR ---
RECIEVED CALL FROM ER THAT THE PATIENT WAS OFF TELE-RESPONDED TO PATIENT ROOM-PATIENT RESTING IN BED WITH TELE MONITOR OFF, O2 WAS OFF AND ABD DRESSINGS WERE OFF. #3JP DRAIN WAS ALSO OUT-PATIENT STATES THAT SHE JUST WANTS TO BE FREE-EXPLAINED TO THE PATIENT THAT BY TAKING ALL OF THIS OFF SHE IS RISKING HARM TO HERSELF-STATES THAT SHE DOESN'T CARE. O2 SAT WAS 91% AND O2 VIA NASAL CANNULA WAS REAPPLIED AND PATIENT WUICKLY RESPONDED WITH O2 SATS OF 96-97. JEAN#1 REMAINS INTACT TO RIGHT ABD. MIDLINE ALEXANDER ARE INTACT AND WELL APPROXIMATED. NO DRAINAGE NOTED. NO REDNESS. DRAIN SITE TO LEFT ABD WITH SMALL AMT OF BLOODY DRAINAGE AND SUTURE WAS REMOVED THE DRAIN WAS REMOVED BY THE PATIENT. NEW DRESSINGS APPLIED TO DRAIN SITES AND MIDLINE INCISION LINE. TELE MONITOR WAS REAPPLIED. LEGER CATH PATENT AND DRAINING KHUSHI U RINE. RIGHT UPPER CHEST TLC INTACT. SAFETY PRECAUTIONS REINFORCED. BED ALARM IN PLACE. MONITORING PATIENT AT BEDSIDE FOR PATIENT SAFETY.
--- NOTE | 2021-07-23 03:37 | NUR ---
00PATIENT CALLING OUT IN PAIN-RESTING IN BED PATIENT FOUND WITH ABD BINDER OFF AGAIN AND HER ABD DRESSINGS AGAIN ARE OFF. JEAN DRAIN REMAINS IN PLACE AND EMPTIED FOR 5CC OF SEROUS FLUID. PATIENT MEDICATED WITH DILAUDID 1MG IVP FOR PAIN VIA RIGHT UPPER CHEST TLC. NEW ABD DRESSINGS WERE APPLIED. MIDLINE INCISION REMAINS INTACT WITH ALEXANDER. NO DRAINAGE OR REDNESS NOTED. COVERED WITH ABD AND DRAIN SITES WERE COVERED WITH FOLDED 4X4 GAUZE AND SECURED WITH PAPER TAPE. ABD BINDER WAS REAPPLIED WITH THE OPENING TO THE BACK TO STOP THE PATIENT FROM TAKING IT OFF AGAIN. O2 VIA NASAL CANNULA IN PLACE-O2 SAT IS 100% AT 2LPM. LEGER PATENT AND DRAINING KHUSHI URINE. BP-169/73, PULSE-88. PATIENT IS RESTLESS AND ANXIOUS-MEDICATED WITH ATIVAN 0.5MG IVP FOR INCREASED ANXIETY. SAFETY PRECAUTIONS WERE REINFORCED. BED ALARM IN PLACE FOR PATIENT SAFETY. CALL LIGHT IN REACH. WILL CONT TO MONITOR.
[2021-07-23 05:00] LABS: HEMATOCRIT 26.1 % (37.0-47.0); HEMOGLOBIN 8.5 g/dl (12.0-16.0); IMMATURE GRANULOCYTES 3.1 % (0.0-5.0); MEAN CELL VOLUME 94.6 fL CALC (80.0-100.0); MEAN CORPUSCULAR HGB 30.8 pG CALC (26.0-32.0); MEAN CORPUSCULAR HGB CONC 32.6 g/dL CAL (32.0-36.0); NEUT# 12.33 thou/uL (2.00-7.15); RED BLOOD COUNT 2.76 mill/uL (4.20-5.60); RED CELL DISTRI WIDTH 13.3 % (11.5-15.5)
--- NOTE | 2021-07-23 05:01 | NUR ---
PATIENT RESTING IN BED WITH HOB ELEVATED AND O2 VIA NASAL CANNULA IN PLACE AT 2LPM. EYES ARE CLOSED. ABD BINDER IN PLACE. LEGER PATENT AND DRAINING KHUSHI URINE. LAB WORK DRAWN FROM RIGHT UPPER CHEST TLC-GOOD BLOOD RETURN FROM WHITE PORT. FLUSHED PER [facility] PROTOCOL WITH SALINE AFTER USE. BED ALARM REMAINS IN PLACE. CALL LIGHT IN REACH. WILL CONT TO MONITOR.
[2021-07-23 05:19] LABS: ANION GAP 5 (6-22 (CALC)); BUN 22 mg/dL (8-23); BUN/CREATININE RATIO 34 (12-20 (CALC)); CARBON DIOXIDE 36 mmol/l (22-30); CHLORIDE 106 mmol/l (95-108); CREATININE 0.6 mg/dL (0.5-1.0); GFR > 60 ML/MIN (>=60 (CALC)); GFR FOR AFR.AMER. > 60 ML/MIN (>=60 (CALC)); SODIUM 143 mmol/l (137-146)
[2021-07-23 05:21] LABS: POTASSIUM 4.1 mmol/l (3.5-5.1)
--- NOTE | 2021-07-23 06:30 | NUR ---
PATIENT FOUND AGAIN TRYING TO TAKE OFF HER TELE LEADS. ALSO ABD DRESSINGS WERE OFF AGAIN. PATIENT PULLED DOWN HER ABD BINDER AND TOOK DRESSINGS OFF AGAIN. PATIENT IS ALSO C/O SEVERE LEFT ABD PAIN AGAIN. PATIENT WAS AGAIN INSTRUCTED ON HOW TAKING THESE DRESSINGS AND TELE MONITOR ARE HARMFUL TO HER RECOVERY BUT PATIENT DOES NOT COMPREHEND THE SEVERITY OF THE SITUATION. PATIENT STATES THAT SHE WASNT THE BINDER OFF BUT EXPLAINED TO PATIENT THAT IT SHOULD STAY IN PLACE. JEAN#1 EMPTIED AGAIN FOR 10CC OF SEROUS FLUID. REMAINS INTACT AT THIS TIME. REDNESS IS NOTED AROUND THE TUBE. MIDLINE INCISION INTACT WITH STAPLE AND REMAINS WELL APPROXIMATED. DSD REAPPLIED. PATIENT ALSO PICKING AT RIGHT UPPER CHEST TLC AND DRESSING WAS REPLACED. TELE MONITOR REAPPLIED. LEGER REMAIKNS INTACT AND DRAINING KHUSHI URINE. MEDICATED FOR LEFT ABD PAIN WITH DILAUDID 1MG IVP ORDERED FOR PAIN. ZOSYN INFUSED ORDERED. BED ALARM IN PLACE FOR PATIENT SAFETY. MATERIAL HANDLER LOADER MONITORING PATIENT AT BEDSIDE FOR PATIENT SAFETY. WILL CONT TO MONITOR.
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
--- NOTE | 2021-07-23 08:09 | NUR ---
MARLENERN IS ORIENTING. DR. GARCIA AT BEDSIDE TO ASSESS PATIENT AND ORDERS RECEIVED.
--- NOTE | 2021-07-23 11:30 | NUR ---
PT VOICES BEING IN PAIN. ULTRAM WAS REFUSED BY PT. PT STATING " VALENTIN DOES NOT WANT ME TO TAKE THIS MEDICATION. I AM A BAD PERSON." REASSESSED BP: 140/58, LEGER REMOVED. PT TOLERATED WELL BUT ANXIOUS. PT NAUSEOUS, ZOFRAN GIVEN. CALL LIGHT WITHIN REACH.
--- NOTE | 2021-07-23 12:00 | NUR ---
BRANDY AND DELMI TELLO (FUNERAL SERVICE PRACTITIONER/EMBALMER) ENCOURAGE PT TO EAT. PT REFUSES. CALL LIGHT WITHIN REACH. FLUIDS OFFERED, TOOK SIPS OF WATER AND SWEET TEA.
--- NOTE | 2021-07-23 13:00 | NUR ---
ENCOURAGED PT TO AMBULATE OUT OF BED AND TAKE A WALK. PT REFUSES. CAll lIGHT WITHIN REACH. BED ALARM IN PLACE.
--- NOTE | 2021-07-23 15:18 | NUR ---
REMOVED JEAN DRAIN, 20 CC OF FLUID COLLECTED IN THE DRAIN. PT WAS GIVEN DILAUDID TO HELP WITH PAIN. JUICE PROVIDED. PT TAKES FEW SIPS OF JUICE. PT REMAINS AMXIOUS. BED ALARM IN PLACE. CALL LIGHT WITHIN REACH.
--- NOTE | 2021-07-23 17:06 | NUR ---
PT SCREAMING IN ROOM. OFFERED FLUIDS AND TO GET OUT OF BED TO WALK . PT REFUSES.
--- NOTE | 2021-07-23 17:35 | NUR ---
BLADDER SCAN PATIENT AND SCAN READING 49ML. PATIENT TOOK A FEW SIPS OF WATER BED ALARM IN PLACE AND CALL LIGHT IN REACH.
--- NOTE | 2021-07-23 18:25 | NUR ---
PATIENT REMOVED HER TELE AND HER GOWN. PATIENT REMOVED THE ABD BINDER AND ABD DRESSING. REORIENT PATIENT. APPLIED TELE AND GOWN BACK ON PATIENT. APPLIED A NEW DRESSING IN ABD . SETUP PATIENT FOR DINNER. PATIENT DENIES ANY OTHER NEEDS AT THIS TIME. CALL LIGHT IN REACH. BED ALARM IN PLACE.
--- NOTE | 2021-07-23 20:01 | NUR ---
PHYSICAL ASSESMENT COMPLETE. PT CURRENTLY DENIES PAIN OR DISCOMFORT. SCHEDULED MEDICATIONS AND PRN MEDICATION ADMINISTERED, SEE E-MAR. PT VERY CONFUSED AND UNAWARE OF HER SURROUNDINGS. ATTEMPTS MADE TO REMOVE TRIPLE LUMEN. ITEMS WITHIN REACH, BED LOCKED IN LOW POSITION W/ BEDRAILS UP X2. CALL JOHNSON WITHIN REACH, AGREES TO CALL PRN.
--- NOTE | 2021-07-23 21:57 | NUR ---
PT CHANGED FOR INCONTINENCE OF URINE. BED CHANGED AND NEW BREIF PLACEED. SITTER AT BEDSIDE PT REMAINS CONFUSED AND TRYING TO REMOVE TELEMENTRY AND IV.
--- NOTE | 2021-07-23 23:59 | NUR ---
PT LAYING IN BED WITH and APPEARS COMFORTABLE AND IN NO DISTRESS. RESPIRATIONS REGULAR AND UNLABORED. SITTER AT BEDSIDE.ITEMS REMAIN WITHIN REACH, CALL JOHNSON REMAINS WITHIN REACH. BED REMAINS LOCKED AND IN LOW POSITION WITH BEDRAILS UP X2. WILL CONTINUE TO MONITOR.
[2021-07-24] VITALS (7 sets, daily range): BP systolic 141–172; BP diastolic 57–77
--- NOTE | 2021-07-24 02:23 | NUR ---
PT RECEIVED FROM ED TO ROOM 268. ARRIVES VIA STRETCHER ACCOMPANIED BY ANNETTE AWAD. PT AMBULATORY TO BED. GAIT UNSTEADY. PT DENIES PAIN AT THIS TIME. ORIENTED TO UNIT, ROOM, CALL JOHNSON, LIGHTS, TV. ICE WATER PROVIDED. CALL JOHNSON WITHIN REACH. AGREES TO CALL PRN.
[2021-07-24 04:45] LABS: HEMATOCRIT 29.1 % (37.0-47.0); HEMOGLOBIN 9.3 g/dl (12.0-16.0); MEAN CELL VOLUME 94.5 fL CALC (80.0-100.0); MEAN CORPUSCULAR HGB 30.2 pG CALC (26.0-32.0); RED BLOOD COUNT 3.08 mill/uL (4.20-5.60); RED CELL DISTRI WIDTH 13.3 % (11.5-15.5)
[2021-07-24 04:57] LABS: ANION GAP 8 (6-22 (CALC)); BUN 22 mg/dL (8-23); BUN/CREATININE RATIO 31 (12-20 (CALC)); CARBON DIOXIDE 36 mmol/l (22-30); CHLORIDE 104 mmol/l (95-108); CREATININE 0.7 mg/dL (0.5-1.0); GFR > 60 ML/MIN (>=60 (CALC)); GFR FOR AFR.AMER. > 60 ML/MIN (>=60 (CALC)); MAGNESIUM 2.2 mg/dL (1.6-2.3); POTASSIUM 4.1 mmol/l (3.5-5.1); SODIUM 143 mmol/l (137-146)
--- NOTE | 2021-07-24 05:20 | NUR ---
PT VOMITING DARK EMESIS. [address] GARCIA ADVISED. ORDERED THE PT TO PLACED ON FLUIDS AND TO BE PLACED NPO.
--- NOTE | 2021-07-24 09:47 | NUR ---
DR GARCIA NOTIFIED OF PT NOT TOLERATING ORAL CONTRAST AT THIS TIME.
--- NOTE | 2021-07-24 10:25 | NUR ---
VERBAL ORDER OBTAINED FOR APPROVAL TO DO CT ABD/PELVIS WITH IV CONTRAST. RADIOLOGY NOTIFIED.
--- NOTE | 2021-07-24 11:24 | NUR ---
PT GOING TO RADIOLOGY WITH BRANDY PAEZ AND DELMI HURD. PT VOMITED COFFEE GROUNDLIKE TEXTURE. MD BARRON AND VISHAL NOTIFIED.
--- NOTE | 2021-07-24 13:01 | NUR ---
PT TRANSPORTED VIA STRETCHER ACCOMPANIED BY Chivo CARDOSO RN AND A RADHA NAVA TO RADIOLOGY.
--- NOTE | 2021-07-24 14:00 | NUR ---
PATIENT EDUCATED ON CENTRAL LINE DRESSING REMOVAL AND CHANGE. PATIENT MASK PLACE AND PATIENT ASKED TO TURN HEAD TO LEFT SIDE AND REMAIN UNTIL DRESSING CHANGED. PATIENT FOLLOWED INSTRUSTIONS. RIGHT SUBCLAVIAN CENTRAL LINE DRESSING REMOVED UNDER ASEPTIC TECHINQUE AT THIS TIME. CENTRAL LINE IS A TRIPLE LUMEN AND ONE LINE IS MISSING CAP AT THIS TIME AND PER DR. BARRON CLAMP LINE AND DO NOT USE AND THIS LINE WAS TEGADERM TO CHEST WALL AND DOCUMENT "DO NOT USE THIS LINE". CENTAL LINE AREA CLEANSE UNDER STERIL TECHINIQE AT THIS TIME. BOTH LINES WERE FLUSHED WITH NORMAL SALINE AND BLOOD RETURNED NOTED IN BOTH LINES. LINE AND CENTRAL LINE SITE COVERED WITH TEGADERM IN KIT DATE AND TIME AND NURSE NAME NOTED. MASK REMOVED FROM PATIENT AND PATIENT REPOSITIONED FOR COMFORT. WILL CONTINUE TO MONITOR.
--- NOTE | 2021-07-24 16:00 | NUR ---
PT LAYING IN BED, TELE MONITOR IN PLACE. PT SLIGHTLY ANXIOUS. VERBAL RELAXATION QUES GIVEN. PT RECEPTIVE. SUPPOSITORIES ORDERED, DR. GARCIA NOTIFIED. PER PHYSICIAN HOLD REMAINING SUPPOSITORIES. VERBAL ORDER ALSO OBTAINED PER PT TO BE ALLOWED SIPS OF CLEAR LIQUID LONG NO NAUSEA PRESENT. CALL LIGHT WITHIN REACH.
--- NOTE | 2021-07-24 18:41 | NUR ---
PT PERFORMED INTENTIVE SPRIROMETER 10X UP TO 500.
--- NOTE | 2021-07-24 19:30 | NUR ---
PHYSICAL ASSESMENT COMPLETE. PT CURRENTLY DENIES PAIN OR DISCOMFORT. PT CLEANED OF A LARGE INCONTINENCE OF STOOL. SCHEDULED MEDICATIONS AND PRN MEDICATION ADMINISTERED, SEE E-MAR. PT DENIES ANY NEEDS AT THIS TIME. PLAN OF CARE REVIEWED, PT DENIES QUESTIONS, VERBALIZES UNDERSTANDING. ITEMS WITHIN REACH, BED LOCKED IN LOW POSITION W/ BEDRAILS UP X2. CALL JOHNSON WITHIN REACH, AGREES TO CALL PRN.
--- NOTE | 2021-07-25 00:49 | NUR ---
PT LAYING IN BED WITH EYES CLOSED, APPEARS TO BE SLEEPING, APPEARS COMFORTABLE AND IN NO DISTRESS. RESPIRATIONS REGULAR AND UNLABORED. ITEMS REMAIN WITHIN REACH, CALL JOHNSON REMAINS WITHIN REACH. BED REMAINS LOCKED AND IN LOW POSITION WITH BEDRAILS UP X2. WILL CONTINUE TO MONITOR.
--- NOTE | 2021-07-25 03:57 | NUR ---
PT RESTING IN BED, NO SIGNS OF DISTRESS NOTED, RESP EVEN AND UNLABORED. PT VOICES NO NEEDS OR COMPLAINTS AT THIS TIME. CALL LIGHT IN REACH, CONTINUE TO MONITOR.
[2021-07-25 04:00] VITALS: BP 167/73
[2021-07-25 04:27] LABS: HEMATOCRIT 29.5 % (37.0-47.0); HEMOGLOBIN 9.4 g/dl (12.0-16.0); MEAN CELL VOLUME 93.7 fL CALC (80.0-100.0); MEAN CORPUSCULAR HGB 29.8 pG CALC (26.0-32.0); MEAN CORPUSCULAR HGB CONC 31.9 g/dL CAL (32.0-36.0); RED BLOOD COUNT 3.15 mill/uL (4.20-5.60); RED CELL DISTRI WIDTH 13.4 % (11.5-15.5)
[2021-07-25 04:39] LABS: ANION GAP 6 (6-22 (CALC)); BUN 21 mg/dL (8-23); BUN/CREATININE RATIO 32 (12-20 (CALC)); CARBON DIOXIDE 33 mmol/l (22-30); CHLORIDE 109 mmol/l (95-108); CREATININE 0.7 mg/dL (0.5-1.0); GFR > 60 ML/MIN (>=60 (CALC)); GFR FOR AFR.AMER. > 60 ML/MIN (>=60 (CALC)); MAGNESIUM 2.3 mg/dL (1.6-2.3); POTASSIUM 3.8 mmol/l (3.5-5.1); SODIUM 144 mmol/l (137-146)
--- NOTE | 2021-07-25 06:55 | NUR ---
REPORT RECEIVED FROM DELMI LEA
[2021-07-25 07:55] VITALS: BP 160/74
--- NOTE | 2021-07-25 07:55 | NUR ---
PT RESTING IN SEMI FOWLERS POSITION,A&O X3;VS OBTAINED AND ASSESSMENT COMPLETED;PT POD #8 PARTIAL TRANSVERSE COLLECTOMY;RESPIRATIONS SHALLOW ON RA, DIMINISHED LUNG SOUNDS NOTED;ABDOMEN SOFT ON PALPATION AND ACTIVE IN ALL 4 QUADRANTS;ABDOMINAL DRY DRESSING CHANGED AT THIS TIME,25 ALEXANDER NOTED IN TOTAL;SITE APPEARS HEALTHY AND WELL APPROX;SKIN OTHERWISE INTACT;+3 BLE EDEMA, ENCOURAGED ELEVATION OF BLE;RT SUBCLAVIAN TL FLUSHED AND X2 CATHETERS PATENT, X1 CATHETER NOT WORKING-MD AWARE;NS INFUSING WITH EASE PER ORDER;TELE MONITORING IN PLACE;NPO DIET REINFORCED AND PT VERBALIZES UNDERSTANDING;PT DENIES ANY ADDITIONAL NEEDS AND IS ENCOURAGED TO CALL FOR ASSISTANCE IF NEEDED;FALL PRECAUTIONS IN PLACE WITH BED IN THE LOWEST POSITION WITH BED ALARM ON FOR SAFETY;CALL LIGHT IN REACH;WILL CONTINUE TO MONITOR
--- NOTE | 2021-07-25 10:23 | NUR ---
AT BEDSIDE DISCUSSING POC WITH PT.
[2021-07-25 10:30] VITALS: BP 163/68
--- NOTE | 2021-07-25 11:35 | NUR ---
PHYSICAL THERAPY AT BEDSIDE WORKING WITH PT.
--- NOTE | 2021-07-25 11:50 | NUR ---
PT OOB RESTING IN RECLINER EATING LUNCH;RESPIRATIONS EVEN AND UNLABORED ON RA;PT DENIES ANY CURRENT PAIN OR DISCOMFORTS;TELE MONITORING IN PLACE;PUREWICK CATHETER PLACED DUE TO INCONTINENCE AFTER LASIX ADMINISTRATION;IV FLUIDS INFUSING WITH EASE;PT ENCOURAGED TO CALL FOR ASSISTANCE IF NEEDED;CALL LIGHT IN REACH;WILL CONTINUE TO MONITOR
--- NOTE | 2021-07-25 12:24 | NUR ---
S: Patient was A and O x 3 for the first time in a few days. O: Patient performed Bed mobility Min A x 1 Supine to sit Min A x 1. Patient had severe dizziness upon sitting but dizziness passed after a few minutes. Sit to stand Max x 2 Ambulation x 3 feet Max A x 2 Patient had difficulty weight shifting bilaterally in order to perform swing phase of gait. Patient took very small shuffling steps due to weakness. A: Patient was able to be transferred from the bed to the chair while ambulating 3 feet with Max A x 2. Patient required extra time in order for dizziness to pass with change of position. Patient reported very minimal pain in and around the surgical area during session. Patient will still need to follow surgical precautions and progress as tolerated. P: Patient will need to continue with interventions focused on strengthening, endurance, tolerance to upright, gait training, balance training, transfers, and bed mobility to improve function with ADLs. Patient's Am Pac score on this date was an 8 which is a discharge recommendation for an extended care facility. I agree with this recommendation at this time due to her limited ability to carry out ADLs.
--- NOTE | 2021-07-25 13:55 | NUR ---
AT BEDSIDE DISCUSSING POC.
--- NOTE | 2021-07-25 14:00 | NUR ---
VISITOR AT BEDSIDE
--- NOTE | 2021-07-25 15:50 | NUR ---
PT APPEARS TO BE SLEEPING IN RECLINER;RESPIRATIONS EVEN AND UNLABORED ON RA;NO S/S OF DISTRESS NOTED;TELE MONITORING IN PLACE;RT TL SUBCLAVIAN INFUSING NS PER ORDER;DRESSINGS TO ABDOMEN CDI;PUREWICK CATHETER REMAINS IN PLACE;ALL SAFETY PRECAUTIONS NOTED WITH CALL LIGHT IN REACH;WILL CONTINUE TO MONITOR
[2021-07-25 16:01] VITALS: BP 147/70
--- NOTE | 2021-07-25 18:26 | NUR ---
PT REPORTS ABDOMINAL PAIN RATING 5/10 ON THE PAIN SCALE AND REQUESTS PAIN MEDICATION,PT MEDICATED WITH PRN ULTRAM 50MG PO AT THIS TIME;PT DENIES ANY ADDITIONAL NEEDS;ENCOURAGED TO CALL FOR ASSISTANCE IF NEEDED;CALL LIGHT IN REACH;WILL CONTINUE TO MONITOR
[2021-07-25 19:00] VITALS: BP 151/69
--- NOTE | 2021-07-25 19:35 | NUR ---
PHYSICAL ASSESMENT COMPLETE. PT CURRENTLY DENIES PAIN OR DISCOMFORT. SCHEDULED MEDICATIONS AND PRN MEDICATION ADMINISTERED, SEE E-MAR. PT DENIES ANY NEEDS AT THIS TIME. PLAN OF CARE REVIEWED, PT DENIES QUESTIONS, VERBALIZES UNDERSTANDING. ITEMS WITHIN REACH, BED LOCKED IN LOW POSITION W/ BEDRAILS UP X2. CALL JOHNSON WITHIN REACH, AGREES TO CALL PRN.
[2021-07-26] VITALS: BP 148/67
[2021-07-26 04:00] VITALS: BP 151/69
[2021-07-26 05:44] LABS: HEMATOCRIT 26.8 % (37.0-47.0); HEMOGLOBIN 8.5 g/dl (12.0-16.0); MEAN CELL VOLUME 95.4 fL CALC (80.0-100.0); MEAN CORPUSCULAR HGB 30.2 pG CALC (26.0-32.0); MEAN CORPUSCULAR HGB CONC 31.7 g/dL CAL (32.0-36.0); RED BLOOD COUNT 2.81 mill/uL (4.20-5.60); RED CELL DISTRI WIDTH 13.5 % (11.5-15.5)
[2021-07-26 05:58] LABS: ANION GAP 7 (6-22 (CALC)); BUN 21 mg/dL (8-23); BUN/CREATININE RATIO 26 (12-20 (CALC)); CARBON DIOXIDE 33 mmol/l (22-30); CHLORIDE 106 mmol/l (95-108); CREATININE 0.8 mg/dL (0.5-1.0); GFR > 60 ML/MIN (>=60 (CALC)); GFR FOR AFR.AMER. > 60 ML/MIN (>=60 (CALC)); MAGNESIUM 2.3 mg/dL (1.6-2.3); POTASSIUM 3.7 mmol/l (3.5-5.1); SODIUM 142 mmol/l (137-146)
--- NOTE | 2021-07-26 07:00 | NUR ---
RECIEVED REPORT FROM DELMI LEA
[2021-07-26 08:33] VITALS: BP 136/66
--- NOTE | 2021-07-26 08:33 | NUR ---
PT RESTING IN SEMI FOWLERS POSITION. PT IS A/O X3. ASSESSMENT AND VITALS OBTAINED. BP 136/66, HR 79, O2 93% ON ROOM AIR.2L NC AT BEDSIDE PRN. LUNG SOUNDS ARE DIMINISHED. HEART RHYTHM NORMAL WITH TELE IN PLACE, SR PER ER MONITORING. BOWEL SOUNDS ARE ACTIVE. LBM 07/25. PEDAL PULSES WEAK. 2+ EDEMA NOTED TO BLE. PT COMPLAINS OF 2/10 BACK PAIN, PT REFUSES MEDICATION AT THIS TIME. PURE WHICK IN PLACE, CONTINOUS LOW SUCTION. PT DENIES OF ANY ADDITIONAL NEEDS AT THIS TIME. ALL SAFETY PRECAUTIONS ARE IN PLACE WITH CALL LIGHT IN REACH. WILL CONTINUE TO MONITOR.
--- NOTE | 2021-07-26 10:10 | NUR ---
VANCOMYCIN ORDERED FOR PHARMACY TO DOSE. PT PRESENTS WITH PNEUMONIA. PT IS ALSO ON CEFEPIME 2G IV BID. SCR = 1, CRCL = 43.5 START VANCOMYCIN 1G IV Q24H @ 1030 AND CHECK TROUGH 30 MIN PRIOR TO 4TH DOSE ON 07/29 @ 1000. GOAL TROUGH IS 15-20 MCG/ML. PHARMACY WILL CONTINUE TO FOLLOW
--- NOTE | 2021-07-26 10:11 | NUR ---
DR BARRON AT BEDSIDE
--- NOTE | 2021-07-26 10:13 | NUR ---
LAB AT BEDSIDE
[2021-07-26 11:10] VITALS: BP 136/70
--- NOTE | 2021-07-26 11:50 | NUR ---
#22G LAC STARTED, SITE APPEARS HEALTHY AND PATENT. PT TOLERATED WELL.
--- NOTE | 2021-07-26 11:53 | NUR ---
Physical therapist attempted to initiate PT intervention with patient today, but patient is sound asleep (physical therapist tried to wake patient up - provided tactile cuing to stimulate patient, but patient continued to sleep soundly). Physical therapist will try again tomorrow to see the patient.
--- NOTE | 2021-07-26 11:57 | NUR ---
PT SLEEPING IN SEMI FOWLERS POSITION. RESPIRATIONS ARE EVEN AND UNLABORED WITH NO DISTRESS NOTED. #22G LAC INFUSING WITH IVF PER ORDER, SITE APPPEARS HEALTHY AND PATENT. RIGHT SUBCLAVIAN REMAINS IN PLACE, PT BE REMOVED BY DELMI MOORE.MIDLINE DRESSING REMAINS CDI. NO SIGNS OF ANY PAINS OR DISCOMFORTS. ALL SAFETY PRECAUTIONS ARE IN PLACE WITH CALL LIGHT IN REACH. WILL CONTINUE TO MONITOR.
[2021-07-26 12:48] LABS: URINE BILIRUBIN - DIPSTICK NEGATIVE (NEGATIVE); URINE COLOR YELLOW; URINE GLUCOSE - DIPSTICK NEGATIVE (NEGATIVE); URINE KETONE NEGATIVE (NEGATIVE); URINE LEUK ESTERASE TRACE (NEGATIVE); URINE PROTEIN - DIPSTICK NEGATIVE (NEG-TRACE); URINE SPECIFIC GRAVITY 1.015; URINE UROBILINOGEN - DIPSTICK 0.2 E.U./dL (0.2)
[2021-07-26 13:40] LABS: URINE NITRITE - DIPSTICK NEGATIVE (Negative)
[2021-07-26 13:42] LABS: URINE BLOOD DIPSTICK TRACE (NEGATIVE)
--- NOTE | 2021-07-26 14:03 | NUR ---
DRESSING TO MIDLINE SURGICAL SITE CHANGED. DRY DRESSING REMAINS CDI. PT TOLERATED WELL
[2021-07-26 14:30] VITALS: BP 152/66
--- NOTE | 2021-07-26 14:52 | NUR ---
REPORTED TEMP OF 101.5. TYLENOL ADMINISTERED. PT TOLERATED WELL
--- NOTE | 2021-07-26 15:14 | NUR ---
RIGHT TRIPLE LUMEN SUBCLAVIAN REMOVED BY DELMI MOORE WITH CATH STILL INTACT.
--- NOTE | 2021-07-26 16:09 | NUR ---
PT SLEEPING IN SEMI FOWLERS POSITION. RESPIRATIONS ARE EVEN AND UNLABORED ON ROOM AIR. #22G LAC INFUSING WITH IVF PER ORDER, SITE REMAINS HEALTHY AND PATENT. TELE MONITORING IN PLACE. PUREWICK IN PLACE, CONT MEDIUM SUCTION. PT TOLERATING WELL. ALL SAFTEY PRECAUTIONS ARE IN PLACE WITH CALL LIGHT IN REACH. WILL CONTINUE TO MONITOR.
[2021-07-26 19:00] VITALS: BP 142/66
--- NOTE | 2021-07-26 19:45 | NUR ---
PATIENT RESTING IN BED AT THIS TIME WITH HOB ELEVATED. AWAKE ALERT AND ORIENTEDX3.AFEBRILE AT THIS TIME-97.1. NO COMPLAINTS AT THIS TIME. O2 OFF AND O2 SAT AT THIS TIME IS 93% ON RA. TELE MONITOR IN PLACE WITH LAST READING BEING SR-70'S. PUREWICK IN PLACE ANMD DRAINING YELLOW URINE. IVF PATENT AND INFUSING VIA LAC-SITE IS HEALTHY WITH GOOD BLOOD RETURN. PATIENT WITH GENERALIZED SWELLING NOTED. ENCOURAGED PATIENT TO ELEVATE FEET WHEN ABLE. ENCOURAGED U SE OF IS Q1H WHILE AWAKE IN REPS OF 10-ABLE TO DEMONSTRATE PROPER USE OF THE DEVICE. ABD IS SOFT WITH ACTIVE BS. SAFETY PRECAUTIONS REINFORCED. CALL LIGHT IN REACH. WILL CONT TO MONITOR.
--- NOTE | 2021-07-26 22:53 | NUR ---
PATIENT RESTING IN BED WITH HOB ELEVATED. EYES CLOSED AND RESPS ARE EVEN AND UNLABORED. TELE MONITOR IN PLACE. IVF PATENT AND INFUSING ORDERED VIA LAC. PUREWICK IN PLACE. BED ALARM IN PLACE FOR PATIENT SAFETY. CALL LIGHT IN REACH. WILL CONT TO MONITOR.
[2021-07-27] VITALS: BP 127/68
--- NOTE | 2021-07-27 01:21 | NUR ---
PATIENT RESTING IN BED AT THIS TIME-EYES REMAIN CLOSED AND RESPS ARE EVEN AND UNLABORED. TELE MONITOR IN PLACE-LAST READING WAS SR-84. PUREWICK IN PLACE AND DRAINING YELLOW URINE. IVF PATENT AND INFUSING VIA LAC SITE ORDERED. BED ALARM IN PLACE FOR PATIENT SAFETY. CALL LIGHT IN REACH. WILL CONT TO MONITOR.
[2021-07-27 04:00] VITALS: BP 123/57
--- NOTE | 2021-07-27 04:59 | NUR ---
PATIENT RESTING IN BED AT THIS TIME WITH EYES CLOSED. RESPS ARE EVEN AND SHALLOW. TELE MONITOR IN PLACE WITH LAST READING SR-84. PURE WICK IS PATENT AND DRAING QS YELLOW U RINE. ABD DRESSING CDI AT THIS TIME. IVF NS PATENT AND INFUSING VIA LAC SITE AT 43CC/HR. SITE REMAINS HEALTHY AT THIS TIME. BED ALARM IN PLACE FOR PATIENT SAFETY. CALL LIGHT IN REACH. WILL CONT TO MONITOR.
[2021-07-27 06:09] LABS: HEMATOCRIT 26.8 % (37.0-47.0); MEAN CELL VOLUME 89.9 fL CALC (80.0-100.0); MEAN CORPUSCULAR HGB 30.2 pG CALC (26.0-32.0); MEAN CORPUSCULAR HGB CONC 33.6 g/dL CAL (32.0-36.0); RED BLOOD COUNT 2.98 mill/uL (4.20-5.60); RED CELL DISTRI WIDTH 13.7 % (11.5-15.5)
[2021-07-27 06:11] LABS: BUN 21 mg/dL (8-23); BUN/CREATININE RATIO 30 (12-20 (CALC)); CHLORIDE 104 mmol/l (95-108); CREATININE 0.7 mg/dL (0.5-1.0); GFR > 60 ML/MIN (>=60 (CALC)); GFR FOR AFR.AMER. > 60 ML/MIN (>=60 (CALC)); MAGNESIUM 2.1 mg/dL (1.6-2.3); POTASSIUM 3.8 mmol/l (3.5-5.1); SODIUM 136 mmol/l (137-146)
--- NOTE | 2021-07-27 06:16 | NUR ---
PATIENT RESTING IN BED AT THIS TIME-EYES ARE CLOSED. RESPS ARE EVEN AND SHALLOW. CRITICAL HIGH WBC-58.2-CALLED TO DR. BARRON. NO NEW ORDERS AT THIS TIME. WILL CONT TO MONITOR.
[2021-07-27 06:17] LABS: ANION GAP 10 (6-22 (CALC)); CARBON DIOXIDE 26 mmol/l (22-30)
--- NOTE | 2021-07-27 07:10 | NUR ---
REPORT RECEIVED FROM DELMI TUCKER
--- NOTE | 2021-07-27 08:10 | NUR ---
PT RESTING IN SEMI FOWLERS POSITION,A&O X3;VS OBTAINED AND ASSESSMENT COMPLETED;PT POD #10 PARTIAL COLECTOMY;PT DENIES ANY CURRENT PAIN OR DISCOMFORTS,PAIN SCALE AND REPORTING EDUCATED;RESPIRATIONS SHALLOW ON RA,CLEAR/DIMINISHED LUNG SOUNDS;ABDOMEN DISTENDED/SOFT ON PALPATION AND ACTIVE IN ALL 4 QUADRANTS;DRESSING CHANGED TO ABDOMEN AND 25 ALEXANDER NOTED WELL APPROX AND HEALTHY;WEAK PEDAL PULSES;GENERALIZED EDEMA NOTED THROUGHOUT;#22G TO LAC INFUSING NS @ 43ML/HR,SITE APPEARS HEALTHY;TELE MONITORING IN PLACE;PUREWICK CATHETER DRAINING URINE WITH EASE;PT DENIES ANY ADDITIONAL NEEDS AND IS ENCOURAGED TO CALL FOR ASSISTANCE IF NEEDED;FALL PRECAUTIONS IN PLACE WITH BED IN THE LOWEST POSITION AND BED ALARM ON FOR SAFETY;CALL LIGHT IN REACH;WILL CONTINUE TO MONITOR
[2021-07-27 08:12] VITALS: BP 127/61
--- NOTE | 2021-07-27 08:20 | NUR ---
PT MEDICATED WITH FIRST DOSE OF GASTROGRAFIN, PT TOLERATED WELL.
--- NOTE | 2021-07-27 08:53 | NUR ---
DR PENA CONSULT PLACED PER DR BARRON.
--- NOTE | 2021-07-27 09:00 | NUR ---
SECOND DOSE OF GASTROGRAFIN ADMINISTERED AT THIS TIME WELL ZOFRAN 4MG IVP FOR NAUSEA PER REQUEST.
--- NOTE | 2021-07-27 09:03 | NUR ---
ORDER PLACED FOR CT THORAX WITHOUT CONTRAST PER DR BARRON
--- NOTE | 2021-07-27 09:30 | NUR ---
THIRD DOSE OF GASTROGRAFIN ADMINISTERED AT THIS TIME, PT TOLERATED WELL.
--- NOTE | 2021-07-27 09:40 | NUR ---
RADIOLOGY NOTIFIED OF COMPLETION OF GASTROGRAFIN.
--- NOTE | 2021-07-27 10:50 | NUR ---
AT BEDSIDE DISCUSSING POC.
--- NOTE | 2021-07-27 11:07 | NUR ---
PT TRANSPORTED TO RADIOLOGY IN STABLE CONDITION VIA HOSPITAL BED ACCOMPANIED BY DELMI PERALTA AND BRANDY NICOLAS.
--- NOTE | 2021-07-27 11:40 | NUR ---
PT TRANSPORTED BACK TO MED/SURG ROOM 270 IN STABLE CONDITION VIA HOSPITAL BED ACCOMPANIED BY DELMI PERALTA.
[2021-07-27 12:00] VITALS: BP 116/63
--- NOTE | 2021-07-27 12:15 | NUR ---
AT BEDSIDE. I&D PERFORMED AT BEDSIDE.150CC OF PURULENT DRAINAGE REMOVED AND WOUND VAC PLACED AT 125MMHG PER MD. WOUND CULTURES OBTAINED AND SENT TO LAB PER ORDER;PT TOLERATED WELL;TELE MONITORING IN PLACE;IV SITE REMAINS PATENT AND ABX STARTED AT THIS TIME;PT DENIES ANY ADDITIONAL NEEDS AND IS ENCOURAGED TO CALL FOR ASSISTANCE IF NEEDED;CALL LIGHT IN REACH;WILL CONTINUE TO MONITOR
--- NOTE | 2021-07-27 13:00 | NUR ---
CONSULT COMPLETED AT THIS TIME.
--- NOTE | 2021-07-27 13:49 | NUR ---
SPOKE WITH MAXIME AT [facility] FOR WOUND VAC; CONFIRMATION NUMBER : [id number] INFORMATION ALSO PROVIDED TO NURSING INTERVENTION NURSE MEGAN. INFORMATION REGARDING AGENT NAME AND CONFIRMATION NUMBER LEFT ON CLIP BOARD
--- NOTE | 2021-07-27 16:00 | NUR ---
PT APPEARS TO BE SLEEPING IN SEMI FOWLERS POSITION;RESPIRATIONS EVEN AND UNLABORED ON RA;NO S/S OF DISTRESS NOTED;TELE MONITORING IN PLACE;IV SITE PATENT INFUSING NS @ 43ML/HR;WOUND VAC IN PLACE RUNNING AT 125MMHG WITH EASE;ALL SAFETY PRECAUTIONS REMAIN IN PLACE WITH BED IN THE LOWEST POSITION AND BED ALARM ON FOR SAFETY;CALL LIGHT IN REACH;WILL CONTINUE TO MONITOR
[2021-07-27 16:01] VITALS: BP 105/56
[2021-07-27 19:00] VITALS: BP 103/53
--- NOTE | 2021-07-27 19:30 | NUR ---
Pt ambulating to restroom, stable gait. Pt reports being cold but denies any other symptoms or distresses. Assessment completed, neuro's intact.
--- NOTE | 2021-07-27 19:30 | NUR ---
PT AMBULATING TO RESTROOM AND BACK TO THE BED. POSTPARTUM NURSE BATTERIES FIXED PER ED CALL. PT REPORTS BEING COLD, DENIES ANY OTHER DISTRESSES OR NEEDS, WARMED BLANKET PROVIDED AND PT ASSISTED ADJUSTING THE BED. CALL LIGHT IN HAND AND PT ENCOURAGED TO CALL NEEDS ARISE, VERBALIZED UNDERSTANDING.
--- NOTE | 2021-07-27 19:45 | NUR ---
PT APPEARS TO BE SLEEPING, NO S/O DISTRESS NOTED. WOUNDVAC IN PLACE WITH GOOD SUCTION CONTINUOUS @125
--- NOTE | 2021-07-27 21:53 | NUR ---
PT MEDICATED ORDERS PROVIDE AND ASSESSMENT COMPLETED ALSO AT THIS TIME. WOUND VAC IN PLACE W/SUCTION CONTINUOUS @125. PT LOC. REPORTS NEEDING ANOTHER BLANKET, ROOM TURNED WARMER AND BLANKET PROVIDED.
[2021-07-28] VITALS (7 sets, daily range): BP systolic 105–127; BP diastolic 48–60
--- NOTE | 2021-07-28 00:26 | NUR ---
IV ANTIBIOTIC THERAPY ADMINISTERED. PT SLEEPING SOUNDLY, RESP EVEN AND NON LABORED. NO S/O DISTRESS. WOUND VAC SUCTION WITH GOOD SEAL @125 CONTINUOUS.
[2021-07-28 05:12] LABS: HEMATOCRIT 24.2 % (37.0-47.0); HEMOGLOBIN 7.8 g/dl (12.0-16.0); MEAN CELL VOLUME 94.2 fL CALC (80.0-100.0); MEAN CORPUSCULAR HGB 30.4 pG CALC (26.0-32.0); MEAN CORPUSCULAR HGB CONC 32.2 g/dL CAL (32.0-36.0); RED BLOOD COUNT 2.57 mill/uL (4.20-5.60); RED CELL DISTRI WIDTH 13.9 % (11.5-15.5)
[2021-07-28 05:39] LABS: ANION GAP 5 (6-22 (CALC)); BUN 20 mg/dL (8-23); BUN/CREATININE RATIO 24 (12-20 (CALC)); CARBON DIOXIDE 30 mmol/l (22-30); CHLORIDE 103 mmol/l (95-108); CREATININE 0.8 mg/dL (0.5-1.0); GFR > 60 ML/MIN (>=60 (CALC)); GFR FOR AFR.AMER. > 60 ML/MIN (>=60 (CALC)); MAGNESIUM 2.2 mg/dL (1.6-2.3); POTASSIUM 3.2 mmol/l (3.5-5.1); SODIUM 135 mmol/l (137-146)
--- NOTE | 2021-07-28 06:28 | NUR ---
PT MEDICATED ORDERS PROVIDE AND PT PLACED ON BEDPAN, 100CC URINE OUTPUT AT THIS TIME.
--- NOTE | 2021-07-28 07:10 | NUR ---
REPORT RECEIVED FROM DELMI CALDWELL
--- NOTE | 2021-07-28 08:20 | NUR ---
PT RESTING IN SEMI FOWLERS POSITION,A&O X3;VS OBTAINED AND ASSESSMENT COMPLETED;PT POD #11 PARTIAL COLECTOMY;PT REPORTS GENERALIZED PAIN AND REQUESTS PRN PAIN MEDICATION, PT TO BE MEDICATED WITH PRN ULTRAM 50MG PO;RESPIRATIONS EVEN AND UNLABORED ON RA,CLEAR/DIMINISHED LUNG SOUNDS NOTED;ABDOMEN DISTENDED/SOFT ON PALPATION AND ACTIVE IN ALL 4 QUADRANTS;ALEXANDER NOTED TO MIDLINE INCISION AND WOUND VAC TO ABDOMEN RUNNING AT 125MMHG;WEAK PEDAL PULSES;#22G TO LAC FLUSHED AND PATENT,SITE APPEARS HEALTHY;TELE MONITORING IN PLACE;PT DENIES ANY ADDITIONAL NEEDS AND IS ENCOURAGED TO CALL FOR ASSISTANCE IF NEEDED;FALL PRECAUTIONS IN PLACE WITH BED IN THE LOWEST POSITION AND CALL LIGHT IN REACH;WILL CONTINUE TO MONITOR
--- NOTE | 2021-07-28 10:02 | NUR ---
AT BEDSIDE DISCUSSING POC.
--- NOTE | 2021-07-28 12:00 | NUR ---
PT RESTING IN SEMI FOWLERS POSITION;RESPIRATIONS EVEN AND UNLABORED ON RA;PT DENIES ANY CURRENT PAIN OR DISCOMFORTS;IV SITE PATENT;WOUND VAC RUNNING AT 125MMHG WITH EASE;TELE MONITORING IN PLACE;PT ENCOURAGED TO CALL FOR ASSISTANCE IF NEEDED;CALL LIGHT IN REACH;WILL CONTINUE TO MONITOR
--- NOTE | 2021-07-28 12:05 | NUR ---
PT AT BEDSIDE WORKING WITH PT.
--- NOTE | 2021-07-28 13:25 | NUR ---
VISITOR AT BEDSIDE
--- NOTE | 2021-07-28 14:19 | NUR ---
Subjective: Patient states that she is feeling a little better today, less sleepy. Objective: Patient participated with the following: Patient did log rolling bed mobility (supine to sitting ADL) with max A x 1-2. Patient did sit to stand transfers with max A x 1-2. Patient did bed to recliner chair ambulation carrying out 3 to 5 steps wit max A x 1-2 with constant verbal and tactile cuing to help decrease trick movement and falls. Assessment: Patient exhibiting improving participation with incresaed functional weight bearing ADLs, carried out bed mobility, gait, and transfer ADLs with max A x 1-2 (previously dependent) due to increased understanding of proper foot placement during gait ADLs, taking small steps while maintaining postural awareness. Plan: Patient to continue with PT intervention to focus on strengthening exercises, transfer training, bed mobility training, and gait re-training to help patient improve functional weight bearing ADLs prior to discharge from hospital. Patient Am Pac score presently at 10 points with discharge recommendation to go to extended care facility placement and I agree with this recommendation.
--- NOTE | 2021-07-28 15:50 | NUR ---
PT APPEARS TO BE SLEEPING IN RECLINER;RESPIRATIONS EVEN AND UNLABORED ON RA;NO S/S OF DISTRESS NOTED;TELE MONITORING IN PLACE;IV SITE PATENT;WOUND VAC CONTINUES TO RUN AT 125MMHG WITH EASE;PUREWICK CATHETER IN PLACE;ALL SAFETY PRECAUTIONS NOTED WITH CALL LIGHT IN REACH;WILL CONTINUE TO MONITOR
[2021-07-29 04:40] VITALS: BP 135/66
[2021-07-29 05:14] LABS: HEMATOCRIT 24.6 % (37.0-47.0); HEMOGLOBIN 8.1 g/dl (12.0-16.0); MEAN CELL VOLUME 93.2 fL CALC (80.0-100.0); MEAN CORPUSCULAR HGB 30.7 pG CALC (26.0-32.0); MEAN CORPUSCULAR HGB CONC 32.9 g/dL CAL (32.0-36.0); RED BLOOD COUNT 2.64 mill/uL (4.20-5.60); RED CELL DISTRI WIDTH 13.7 % (11.5-15.5)
[2021-07-29 05:17] LABS: ANION GAP 4 (6-22 (CALC)); BUN 16 mg/dL (8-23); BUN/CREATININE RATIO 23 (12-20 (CALC)); CARBON DIOXIDE 30 mmol/l (22-30); CHLORIDE 105 mmol/l (95-108); CREATININE 0.7 mg/dL (0.5-1.0); GFR > 60 ML/MIN (>=60 (CALC)); GFR FOR AFR.AMER. > 60 ML/MIN (>=60 (CALC)); MAGNESIUM 2.2 mg/dL (1.6-2.3); POTASSIUM 3.6 mmol/l (3.5-5.1); SODIUM 135 mmol/l (137-146)
--- NOTE | 2021-07-29 07:05 | NUR ---
REPORT RECEIVED FROM DELMI LEA
[2021-07-29 08:23] VITALS: BP 128/49
--- NOTE | 2021-07-29 08:25 | NUR ---
PT RESTING IN SEMI FOWLERS POSITION,A&O X3;VS OBTAINED AND ASSESSMENT COMPLETED;PT REPORTS GENERALIZED PAIN AND REQUESTS PAIN MEDICATION, PT TO BE MEDICATED WITH PRN ULTRAM 50MG PO;PT POD #12 PARTIAL COLECTOMY;RESPIRATIONS EVEN AND UNLABORED ON RA,CLEAR/DIMINISHED LUNG SOUNDS;ABDOMEN DISTENDED/SOFT ON PALPATION AND ACTIVE IN ALL 4 QUADRANTS;WOUND VAC TO ABDOMEN RUNNING AT 125MMHG;PUREWICK CATHETER IN PLACE DRAINING CLEAR/YELLOW URINE;WEAK PEDAL PULSES;#22G TO LAC FLUSHED AND PATENT,SITE APPEARS HEALTHY;PT DENIES ANY ADDITIONAL NEEDS AND IS ENCOURAGED TO CALL FOR ASSISTANCE IF NEEDED;FALL PRECAUTIONS IN PLACE WITH BED IN THE LOWEST POSITION AND CALL LIGHT IN REACH;WILL CONTINUE TO MONITOR
--- NOTE | 2021-07-29 10:35 | NUR ---
LAB AT BEDSIDE
--- NOTE | 2021-07-29 10:55 | NUR ---
AT BEDSIDE DISCUSSING POC WITH PT.
[2021-07-29 11:17] VITALS: BP 131/45
--- NOTE | 2021-07-29 12:05 | NUR ---
PT RESTING IN SEMI FOWLERS POSITION;RESPIRATIONS EVEN AND UNLABORED ON RA;PT DENIES ANY CURRENT PAIN OR NEEDS;TELE MONITORING IN PLACE;IV SITE PATENT;PUREWICK CATHETER DRAINING WITH EASE;WOUND VAC RUNNING AT 125MMHG;ABX HUNG AT THIS TIME;SPOKE WITH ;EDUCATED PT ON 'S NEW ORDERS FOR AN ABDOMINAL WOUND WASH OUT AND WOUND VAC CHANGED TOMORROW 07/30/21 AT APPROX 0800 AND PT VERBALIZES UNDERSTANDING;PT ALSO EDUCATED ON NPO DIET STATUS AFTER MIDNIGHT;PT DENIES ANY ADDITIONAL NEEDS AND IS ENCOURAGED TO CALL FOR ASSISTANCE IF NEEDED;CALL LIGHT IN REACH;WILL CONTINUE TO MONITOR
--- NOTE | 2021-07-29 13:14 | NUR ---
VISITOR AT BEDSIDE
--- NOTE | 2021-07-29 15:35 | NUR ---
PT RESTING IN SEMI FOWLERS POSITION TALKING ON THE PHONE;PT DENIES ANY CURRENT PAIN OR DISCOMFORTS;TELE MONITORING IN PLACE;RESPIRATIONS EVEN AND UNLABORED ON RA;IV SITE PATENT AND PUREWICK CATHETER DRAINING WITH EASE;WOUND VAC RUNNING AT 125MMHG;ENCOURAGED TO CALL FOR ASSISTANCE IF NEEDED;CALL LIGHT IN REACH;WILL CONTINUE TO MONITOR
[2021-07-29 15:47] VITALS: BP 133/51
--- NOTE | 2021-07-29 16:37 | NUR ---
VANCOMYCIN TROUGH IS 6 SCR=0.7 INCREASE VANCOMYCIN TO 1 GRAM IV Q12H HR NEXT TROUGH WILL BE 07/30/21 @2029 GOAL TROUGH IS 15-20
--- NOTE | 2021-07-29 17:05 | NUR ---
KIMBERLYRN DIGITAL ANALYST NOTIFIED OF OR CASE TOMORROW AT APPROX 0800 PER .
[2021-07-29 19:11] VITALS: BP 131/55
--- NOTE | 2021-07-29 19:39 | NUR ---
PHYSICAL ASSESMENT COMPLETE. PT CURRENTLY DENIES PAIN OR DISCOMFORT. SCHEDULED MEDICATIONS AND PRN MEDICATION ADMINISTERED, SEE E-MAR. PT IS AWARE OF A WASHOUT PROCEDURE SCHEDULED FOR THE AM WITH DR GARCIA. PT WILL BE PLACED NPO AT MIDNIGHT. PT DENIES ANY NEEDS AT THIS TIME. PLAN OF CARE REVIEWED, PT DENIES QUESTIONS, VERBALIZES UNDERSTANDING. ITEMS WITHIN REACH, BED LOCKED IN LOW POSITION W/ BEDRAILS UP X2. CALL JOHNSON WITHIN REACH, AGREES TO CALL PRN.
[2021-07-30] VITALS (9 sets, daily range): BP systolic 125–155; BP diastolic 51–72
[2021-07-30 05:02] LABS: HEMOGLOBIN 7.8 g/dl (12.0-16.0); MEAN CORPUSCULAR HGB 30.2 pG CALC (26.0-32.0); MEAN CORPUSCULAR HGB CONC 32.5 g/dL CAL (32.0-36.0); RED BLOOD COUNT 2.58 mill/uL (4.20-5.60); RED CELL DISTRI WIDTH 13.9 % (11.5-15.5)
[2021-07-30 05:09] LABS: ANION GAP 5 (6-22 (CALC)); BUN 14 mg/dL (8-23); BUN/CREATININE RATIO 22 (12-20 (CALC)); CARBON DIOXIDE 31 mmol/l (22-30); CHLORIDE 107 mmol/l (95-108); CREATININE 0.6 mg/dL (0.5-1.0); GFR > 60 ML/MIN (>=60 (CALC)); GFR FOR AFR.AMER. > 60 ML/MIN (>=60 (CALC)); MAGNESIUM 2.2 mg/dL (1.6-2.3); POTASSIUM 3.6 mmol/l (3.5-5.1); SODIUM 139 mmol/l (137-146)
--- NOTE | 2021-07-30 07:00 | NUR ---
RECIEVED REPORT FROM DELMI LEA
--- NOTE | 2021-07-30 07:16 | NUR ---
PT RESTING IN SEMI FOWLERS POSITION. PT IS A/OX3 WITH SOME CONFUSION. ASSESSMENT AND VITALS COMPLETED. BP 150/57, HR 73, O2 92% ON ROOM AIR. LUNG SOUNDS ARE CLEAR. HEART RHYTHM NORMAL WITH TELE IN PLACE. BOWEL SOUNDS ARE ACTIVE, LBM 07/25/21. PEDAL PULSES WEAK.2+ EDEMA NOTED TO BLE. #22G LAC INFUSING WITH IVF PER ORDER, SITE REMAINS HEALTHY AND PATENT. WOUND VAC @125 AT MIDLINE, DRESSING REMAINS CDI.PUREWICK IN PLACE, CLEAR KHUSHI URINE.PT DENIES OF ANY PAINS OR DISCOMFORTS. ALL SAFTEY PRECAUTIONS ARE IN PLACE WITH CALL LIGHT IN REACH. WILL CONTINUE TO MONITOR.
--- NOTE | 2021-07-30 07:23 | NUR ---
PT TRANSPORTED TO OR FOR SCHEDULED ABD WASHOUT VIA BED ACCOMPAINED BY OR NURSES.
--- NOTE | 2021-07-30 09:34 | NUR ---
PT ARRIVED TO [facility] ROOM 270 VIA BED ACCOMPAINED BY OR STAFF. ABD WASHOUT AND WOUND VAC REPLACED BY DR GARCIA.PT REMAINS A/O X3 WITH SOME CONFUSION. RESPIRATIONS ARE EVEN AND UNLABORED ON ROOM AIR. BP 158/72, HR 70, O2 96% ON ROOM AIR. WOUND VAC TO MIDLINE INCISION REMAINS IN PLACE, SUCTION @125. DRESSING REMAINS CDI. 5 ALEXANDER NOTED ABOVE WOUND VAC DRESSING. NEW LEFT SUBCLAVIAN TRIPLE LUMEN LINE PLACED IN OR.SITE FLUSHED WITH GOOD BLOOD RETURN. SCDS IN PLACE. PT DENIES OF ANY PAINS OR DISCOMFORTS. ALL SAFETY PRECAUTIONS ARE IN PLACE WITH CALL LIGHT IN REACH. WILL CONTINUE TO MONTIOR.
--- NOTE | 2021-07-30 09:45 | NUR ---
DR BESS AND JESS,ANRP AT BEDSIDE
--- NOTE | 2021-07-30 10:22 | NUR ---
SACHA GRACIA is a 80 year old Female. Admitted for abdominal pain the found to have pneumonia. She is being treated for pneumonia with vancomycin. Ht:4ft 11 in, Wt:93 kg, DW:93 Kg, SCr: 1Ml/min, CrCl (calc) = 43.5 ml/min WBC:33.4 thou/ul, Tcurrent:98, HR:67 beats/min, BP:130/61 mmHg, RR: 18 breaths/min, Sa02:98%, Trough=6 mg/L AP is not therapeutic at the current dose. Goal level is 15-20 mg/L. 1. Continue with current dose of 1g IV Q12H. 2. Check trough on 07/30/21 at 2030. 3. Monitor BMP daily while on vancomycin 1g. Pharmacy will continue to follow.
--- NOTE | 2021-07-30 10:39 | NUR ---
VERBAL ORDERS FROM DR GARCIA TO RESUME REGULAR DIET AND PREOP ORDERS.
--- NOTE | 2021-07-30 10:58 | NUR ---
SCHEDULED MEDICATIONS ADMINISTERED. PT TOLERATED WELL.
--- NOTE | 2021-07-30 11:36 | NUR ---
PT RESTING IN SEMI FOWLERS POSITION. RESPIRATIONS ARE EVEN AND UNLABORED WITH NO DISTRESS NOTED. RIGHT SUBCLAVIAN TRIPLE LUMEN REMAINS IN PLACE. TELE IN PLACE. SCDS IN PLACE. PURE WHICK IN PLACE, MEDIUM SUCTION. KHUSHI YELLOW URINE NOTED. ALL SAFETY PRECAUTIONS ARE IN PLACE WITH CALL LIGHT IN REACH. WILL CONTINUE.
--- NOTE | 2021-07-30 12:27 | NUR ---
PT MEDICATED OF GENERAILED PAIN. PT TOLERATED WELL.
--- NOTE | 2021-07-30 14:36 | NUR ---
PHYSICAL THERAPY AT BEDSIDE, PT UP TO CHAIR.
--- NOTE | 2021-07-30 14:55 | NUR ---
s- pt stated she would like to get OOB to chair, today. She agreed to treatment. 0- pt seen for treatment this pm as per MD order to resume pre procedure order and nursing/PT Krishna Lunsford. Treatment consisted of bed mobility, transfer and ther ex. Pt clamp remover to L side and sat on edge of bed with min/mod assistance x 1. Sitting balance was fair+ on edge of bed. Transfer to bedside chair with max assist x 1. LE ex including AROM/glute set and gentle heel cord stretching x 3 done. A- pt voices c/o weakness but cooperative with treatment. [facility] 11 for extended care. P- Will follow and progress as tolerated.
--- NOTE | 2021-07-30 15:21 | NUR ---
Addenum: Pt BP 152/65 and increased to 173/64 in sitting, HR 75 to 94. Nursing aware. Pt was without complaints and happy to be OOB in chair.
--- NOTE | 2021-07-30 16:05 | NUR ---
PT SITTING UP IN CHAIR. VISITOR AT BEDSIDE . RESPIRATIONS ARE EVEN AND UNLABORED ON ROOM AIR. LEFT SUBCLAVIAN TRIPLE LUMEN REMAINS IN PLACE, SITE APPEARS HEALTHY AND PATENT. TELE IN PLACE. PT DENIES OF ANY PAINS OR DISCOMFORTS AT THIS TIME. ALL SAFETY PRECAUTIONS ARE IN PLACE. WILL CONTINUE TO MONITOR
--- NOTE | 2021-07-30 20:00 | NUR ---
PT MEDICATED AND ASSESSMENT COMPLETED AT THIS TIME. NO S/O DISTRESS. SHE WAS SLEEPING, AWOKE TO MY VOICE. ABD INC CDI W/WOUND VAC SEALED AT CONT SUCTION @125.
--- NOTE | 2021-07-30 20:15 | NUR ---
BLOOD DRAWN FOR LAB VANCO TROUGH VIA [facility] [place] PICC 3L. BLOOD RETURN RECEIVED FORM WHITE LUMEN, ALL LUMENS WERE FLUSHED AT THIS TIME. PT MEDICATED AT THIS TIME ALSO ORDERS PROVIDE. DENIES PAIN OR DISTRESSES AT THIS TIME. WOUND VAC TO ABD WITH CLOSED SEAL SUCTIONING CONTIN @125.
--- NOTE | 2021-07-30 21:56 | NUR ---
PT MEDICATED ORDERS PROVIDE. NO S/O DISTRESS NOTED. PT AWOKE BRIEFLY TO MY VOICE AND RETURNED TO SLEEP. DENYING ANY NEEDS.
[2021-07-31] VITALS: BP 148/59
--- NOTE | 2021-07-31 01:17 | NUR ---
PT MEDICATED ORDERS PROVIDE. PT WAS SLEEPING, NO S/O DISTRESS NOTED.
--- NOTE | 2021-07-31 02:58 | NUR ---
PT SLEEPING, RESP EVEN AND NON-LABORED.
[2021-07-31 04:00] VITALS: BP 152/63
--- NOTE | 2021-07-31 05:45 | NUR ---
IV ANTIBIOTIC THERAPY ADMINISTERED AT THIS TIME. PUREWICK IN PLACE. WOUND VAC SET TO CONTIN SUCITON WITH GOOD SEAL @125.
--- NOTE | 2021-07-31 08:00 | NUR ---
PT AWAKE AND ALERT UPON ENTERING ROON. IN A REALLY GOOD MOOD. STATES THEY FEEL MUCH BETTER. ASSESSMENT WAS DONE AT THIS TIME. BREATHING IS EVEN UNLABORED. LUNG SOUNDS ARE CLEAR UPPER LOWER LOBES EQUALLY BILATERALLY. BOWEL SOUNDS X4, TELE MONITOR IN PLACE. HEART SOUNDS ARE REGULAR. MIDLINE DRESSING CDI, VACCUMONITOR IN PLACE. EDEME +2 ON LOWER LEGF/FEET BILATERALLY. LEFT SUBCLAVIAN TRIPLE LUMEN IN PLACE IS INTACT. FLUSHED WITH NO RESISTANCE. SALINE LOCKED REPORTS NO PAIN AT THIS TIME. CALL LIGHT WITHIN REACH,
[2021-07-31 09:26] LABS: HEMOGLOBIN 8.6 g/dl (12.0-16.0); MEAN CELL VOLUME 93.1 fL CALC (80.0-100.0); MEAN CORPUSCULAR HGB 29.7 pG CALC (26.0-32.0); MEAN CORPUSCULAR HGB CONC 31.9 g/dL CAL (32.0-36.0); NEUT# 14.75 thou/uL (2.00-7.15); RED BLOOD COUNT 2.9 mill/uL (4.20-5.60); RED CELL DISTRI WIDTH 13.8 % (11.5-15.5)
[2021-07-31 09:37] LABS: ALBUMIN 2.3 g/dL (3.2-5.0); ALKALINE PHOSPHATASE 102 u/l (38-126); ANION GAP 5 (6-22 (CALC)); BILIRUBIN, TOTAL 0.4 mg/dL (0.0-1.4); BUN 10 mg/dL (8-23); BUN/CREATININE RATIO 17 (12-20 (CALC)); CARBON DIOXIDE 33 mmol/l (22-30); CHLORIDE 106 mmol/l (95-108); CREATININE 0.6 mg/dL (0.5-1.0); GFR > 60 ML/MIN (>=60 (CALC)); GFR FOR AFR.AMER. > 60 ML/MIN (>=60 (CALC)); POTASSIUM 3.9 mmol/l (3.5-5.1); SGOT/AST 30 u/l (9-36); SODIUM 140 mmol/l (137-146); TOTAL PROTEIN 5.5 g/dL (6.3-8.2)
--- NOTE | 2021-07-31 10:19 | NUR ---
DR. SLAUGHTER WITH PT ROOM DISCUSSING POC.
[2021-07-31 10:29] VITALS: BP 163/68
--- NOTE | 2021-07-31 10:51 | NUR ---
PHYSICAL THERAPY AT BEDSIDE
--- NOTE | 2021-07-31 11:14 | NUR ---
S-Pt alert and oriented. She was without complaints voiced and stated it felt good sitting in chair yesterday 0-Pt seen for therapy this am including the ex and mobility activities. In supine AROM to BLEs including heel slides, ankle DF/PF, hip abd/add, hip IR and ER 2 x10 reps each with therapist guiding movement. Pt instructed in proper breathing while performing exercises, she tends to hold her breath. she rolled to the R/L using bed rail with assist of LEs required. Supine to sit with mod assist x1. Sitting on edge of bed with guarding and much encouragement. Stand pivot transfer with max assist x1. After resting she was able to stand from chair with mod assist of 1 grab walker and stand x 1.5 min. 02 sats 96% at rest 97% after exercise,96% with sitting in chair. HR 83,86,96, BP 160/68, 156/72, 146/73. A- Pt able to stand holding onto walker today, she was cooperative and will to participate in therapy. [facility]. P- will follow and prgress as tolerated.
--- NOTE | 2021-07-31 12:00 | NUR ---
PT EATING LUNCH. REPORTS NO PAIN AT THIS TIME. CALL LIGHT WITHIN REACH.
--- NOTE | 2021-07-31 13:04 | NUR ---
S: SACHA GRACIA is a 80 F who presents with pneumonia. She has a history of hypertension and heart disease. All medications in patient's chart were reviewed. O: VS: BP 163/68 MMHG , P 78 BPM, RR 19 BPM , 97.4F W 93 KG , HT 59 inches, Scr 0.6 mg/dL, CrCl= 45.3 mL/min Vanco trough 07/30 @ 2029 = 9 mcg/ml A: Blood culture and body fluid cultures show no growth. P: Patient is on Zosyn 3.375 G IV Q6H. Vancomycin ordered for pharmacy to dose. Change Vancomycin to 1 G IV Q8H. Vancomycin trough is drawn before the 4th dose on 08/01/2021 @ 0930. Vancomycin goal trough is between <15-20 mcg/ml>. Pharmacy will follow and or advise on antibiotics use as needed.
--- NOTE | 2021-07-31 14:22 | NUR ---
DR. STARK CONSULT DISCUSSING POC WITH PT.
[2021-07-31 15:05] VITALS: BP 138/65
--- NOTE | 2021-07-31 16:00 | NUR ---
PT UP IN RECLINER EATING ICECREAM. REPORTS NO PAIN AT THIS TIME. CALL LIGHT WITHIN REACH
[2021-07-31 19:00] VITALS: BP 156/70
--- NOTE | 2021-07-31 20:43 | NUR ---
PT MEDICATED ORDERS PROVIDE. NO S/O DISTRESS NOTED. SHE REPORTS HAVING HAD A GOOD DAY AND FEELING GOOD. SHE DOES REPORT FEELING SLIGHTLY DISTENDED IN ABD. ASSESSED TIGHTNESS IN ABD, ACTIVE BOWEL SOUNDS, NO BRUISING OR S/O BLEEDING, DRESSING FOR WOUND VAC SEALED AND CONT SUCTION AT 125 WITH BLOODY DRAINAGE, SHE DENIES ABD PAIN AT THIS. SHE DEMONSTRATED 5 BREATHS W/IS MEASURING BREATH VOLUMES AT 500 ONLY, I ENCOURAGED IT'S PERIODIC USE RE-EDUCATING PROPER USE, VERBALIZED UNDERSTANDING AND REPORTS THAT SHE DOES USE IT OFF AND ON WHILE AWAKE, PLACED ON BST W/IN [facility]. PUREWICK IS IN PLACE. CALL LIGHT W/IN REACH AND PT ENCOUARGED TO CALL.
--- NOTE | 2021-07-31 22:30 | NUR ---
CARTON FORMING MACHINE HELPER CALLED TO SHOW ME A RED MIK ON LUE, PT DENIES PAINFUL TO THE ARE, BUT WE DISCUSSED LEAVING OFF THE BRIEF, IT APPEARS TO BE FROM PUREWICK TUBING BEING UNDERNEATH THE PT OR THE BRIEF BEING TOO TIGHT. SHE AGREED TO LEAVE THE BRIEF OFF AT THIS TIME. SKIN APPEARS INTACT, WITH JUST SOME REDNESS TO THE LUE. WILL CONTINUE TO MONITOR. [facility] PROVIDED AT THIS TIME.
--- NOTE | 2021-07-31 23:59 | NUR ---
pt medicated w/iv antibiotic therapy. Pt was sleeping soundly as I enetered room,
[2021-08-01] VITALS: BP 153/72
--- NOTE | 2021-08-01 00:45 | NUR ---
PT TELEMETRY BATTERIES REPLACED AT THIS TIME, PT AWOKE AND ASKED FOR PO FLUIDS, ASSISTED AND MADE SURE THEY WERE LEFT W/IN REACH ON BST AND CALL LIGHT REORIENTED AND LEFT W/IN REACH ALSO.
--- NOTE | 2021-08-01 03:37 | NUR ---
PT MEDICATED W/IV ANTIBIOTIC THERAPY. SHE ASKED FOR SMALL SNACK/PROVIDED.
[2021-08-01 04:05] VITALS: BP 152/70
--- NOTE | 2021-08-01 04:46 | NUR ---
ATTEMPTED TO DRAW BLOOD FOR LABS, UNABLE TO DRAW FROM ALL 3 LUMENS OF CENTRAL LINE. LINES FLUSH, BUT WILL NOT PROVIDE BLODD RETURN. LAB NOTIFIED AND IN W/PT AT THIS TIME.
[2021-08-01 05:45] LABS: HEMATOCRIT 26.6 % (37.0-47.0); HEMOGLOBIN 8.8 g/dl (12.0-16.0); MEAN CELL VOLUME 93.3 fL CALC (80.0-100.0); MEAN CORPUSCULAR HGB 30.9 pG CALC (26.0-32.0); MEAN CORPUSCULAR HGB CONC 33.1 g/dL CAL (32.0-36.0); RED BLOOD COUNT 2.85 mill/uL (4.20-5.60); RED CELL DISTRI WIDTH 14.1 % (11.5-15.5)
[2021-08-01 06:10] LABS: ANION GAP 7 (6-22 (CALC)); BUN 8 mg/dL (8-23); BUN/CREATININE RATIO 14 (12-20 (CALC)); CARBON DIOXIDE 29 mmol/l (22-30); CHLORIDE 108 mmol/l (95-108); CREATININE 0.6 mg/dL (0.5-1.0); GFR > 60 ML/MIN (>=60 (CALC)); GFR FOR AFR.AMER. > 60 ML/MIN (>=60 (CALC)); MAGNESIUM 2.2 mg/dL (1.6-2.3); POTASSIUM 3.8 mmol/l (3.5-5.1); SODIUM 140 mmol/l (137-146)
[2021-08-01 07:44] VITALS: BP 165/32
--- NOTE | 2021-08-01 08:00 | NUR ---
PT AWAKE AND A&O X3. STATES AWAITING FOR PHYSICIANS TO COME AND SEE HER IM REGARDS HEALTH CONCERNS. PT IV TRIPLE LUMEN LEFT SUBCLAVIAN IS INTACT, FLUSHED ALL THREE PORTS NO RESISTANCE NOTED HOWEVER UNSCUCESSFUL WITH BLOOD RETURN FROM ALL THREE PORTS. PT ALLOWED ASSESSMENT TO BE DONE AT THIS TIME. S1 AND S2 HEARD. LUNG SOUNDS CLEAR UPPER/LOWER LOBES. BREATHING IS EVEN AND UNLABORED. PT RIGHT IS SWOLLEN, ELEVATED ON PILLOWS. EDEMA ON THE FEET BILATERALLY +2. PT TOLERATED MEDS WELL. FALL PRECAUTIONS ARE IN PLACE. TELE MONITOR IN PLACE MONITORED BY ED. PT REPORTS NO PAIN AT THIS TIME. CALL LIGHT AND PERSONAL ITEMS ARE WITHIN REACH.
--- NOTE | 2021-08-01 09:00 | NUR ---
DR. SLAUGHTER WITH PT DISCUSSING POC
[2021-08-01 10:00] VITALS: BP 155/72
--- NOTE | 2021-08-01 11:42 | NUR ---
S- Pt stated she was a mess this am, did not sleep well and emotionally just had it. 0- She was cooperative for A/AAROM exercises to BLEs including hip flex/abd/add, IR/ER, TKE and ankle AROM. Passive heel cord stretching and hamstrings done x 3 reps. She refused OOB to chair, just not able to today. 02 sats 93% HR 74, BP 160/80 and 138/70 post treatment and pt reported feeling a little better. [facility] 9 today extended care. A- pt emotionally overspent but did cooperate with mobility activies/OOB to chair. P- will continue to follow.
--- NOTE | 2021-08-01 12:00 | NUR ---
PT RESTING IN BED. TRIPLE LUMEN INTACT FLUSHED WITH NO RESISTANCE. BUT NO BLOOD RETURN FROM ALL THREE LUMES,SALINE LOCK. RIGHT HAND REMAINS ELEVATED. REPORTS NO PAIN AT THIS TIME. TELE MONITOR IN PLACE MONITORED BY ED. FALL PRECAUTIONS ARE IN PLACE. CALL LIGHT WITHIN REACH.
--- NOTE | 2021-08-01 13:57 | NUR ---
SACHA GRACIA is a 80 year old Female admitted for pneumonia she is being treated for pneumonia with vancomycin IV 1g q8h. Final blood and body fluid cultures show no growth. Ht:59 in, Wt:93 kg, DW:93 Kg, SCr:0.6 mg/dL, CrCl (calc) = 45 ml/min WBC:33.4 thou/ul , Tmax:98.4 . Tcurrent:97.7 HR:67 beats/min, BP:155/72 mmHg, RR 19 BPM breaths/min,Sa02: 96% Trough= 19 mg/L AP is therapeutic at the current dose. Goal level is 15-20 mg/L. 1. Change dose to 1250 mg IV q12h. 2. Check trough on 08/02/21 at 1430. 3. Monitor BMP daily while on vancomycin IV. Pharmacy will continue to monitor trough levels.
[2021-08-01 15:00] VITALS: BP 148/65
--- NOTE | 2021-08-01 16:00 | NUR ---
PT IN ROOM WITH FAMILY MEMBER. NO SIGNS OF DISTRESS. FLUSHED TRIPLE LUMEN, NO RESISTANCE FROM ALL 3 LUMENS. CALL LIGHT WITHIN REACH
--- NOTE | 2021-08-01 17:28 | NUR ---
WOUND VAC DRESSING CHANGED PER MD'S ORDERS. BY Maury PAYAN RN AND THIS QUANTITATIVE ANALYST DEVELOPER. PT PREMEDICATED WITH DILAUDID, PT TOLERATED WELL. NEW CANISTER APPLIED. WOUND VAC CONTINUES TO CONTINUOUS SUCTION AT 125 MM/HG. PT SET UP FOR DINNER. NO OTHER NEEDS AT THIS TIME. CALL LIGHT WITHIN REACH.
[2021-08-01 19:19] VITALS: BP 145/66
--- NOTE | 2021-08-01 19:20 | NUR ---
PT RESTING IN BED WATCHING TV, NO SIGNS OF DISTRESS NOTED, RESP EVEN AND UNLABORED. PT ALERT AND ORIENTED X3, DISCUSSED POC, PT VERBALIZED UNDERSTANDING. WOUND VAC TO ABD CONTINUOUS SUCTION AT 125, PT TOLERATING WELL GOOD SEAL NO LEAKS. ALEXANDER TO ABD CDI; FISH CAKE MAKER. BS ACTIVE X4 QUADS. NOTED EDEMA TO BLE ELEVATED ON PILLOWS, PT STATES SHE HAD EDEMA TO HER HANDS NONE NOTED AT THIS TIME. TRIPLE LUMEN CENTRAL LINE TO L SUBCLAVIAN, SITES FLUSHED WELL BUT NO BLOOD RETURN. ASSESSMENT COMPLETED,PT MEDICATED PER MAR. VOICES NO NEEDS OR COMPLAINTS AT THIS TIME, CALL LIGHT IN REACH,CONTINUE TO MONITOR.
[2021-08-02] VITALS (7 sets, daily range): BP systolic 134–184; BP diastolic 54–81
--- NOTE | 2021-08-02 | NUR ---
PT RESTING IN BED, NO SIGNS OF DISTRESS NOTED, RESP EVEN AND UNLABORED. IV ANTIBIOTIC INFUSING, PT VOICES NO NEEDS OR COMPLANTS AT THIS TIME, CALL LIGHT IN REACH,CONTINUE TO MONITOR.
[2021-08-02 05:30] LABS: HEMATOCRIT 27.2 % (37.0-47.0); HEMOGLOBIN 8.5 g/dl (12.0-16.0); MEAN CELL VOLUME 95.1 fL CALC (80.0-100.0); MEAN CORPUSCULAR HGB 29.7 pG CALC (26.0-32.0); MEAN CORPUSCULAR HGB CONC 31.3 g/dL CAL (32.0-36.0); RED BLOOD COUNT 2.86 mill/uL (4.20-5.60); RED CELL DISTRI WIDTH 14.6 % (11.5-15.5)
[2021-08-02 06:02] LABS: ANION GAP 5 (6-22 (CALC)); BUN 9 mg/dL (8-23); BUN/CREATININE RATIO 11 (12-20 (CALC)); CARBON DIOXIDE 34 mmol/l (22-30); CHLORIDE 106 mmol/l (95-108); CREATININE 0.8 mg/dL (0.5-1.0); GFR > 60 ML/MIN (>=60 (CALC)); GFR FOR AFR.AMER. > 60 ML/MIN (>=60 (CALC)); POTASSIUM 3.7 mmol/l (3.5-5.1); SODIUM 141 mmol/l (137-146)
--- NOTE | 2021-08-02 06:05 | NUR ---
IV ZOSYN INFUSION COMPLETED, FLUSHED CENTRAL LINE LUMENS X3, PT VOICES NO NEEDS OR COMPLAINTS AT THIS TIME, CALL LIGHT IN REACH,CONTINUE TO MONITOR.
--- NOTE | 2021-08-02 08:23 | NUR ---
SHIFT CHANGE REPORT, PT AWAKE ALERT AND ORIENTED X 3, STATES SHE HAS MINOR DULL PAIN @ 1/10 AT THIS TIME, INC TO ABD INTACT WIT 9 ALEXANDER AND WOUND VAC TO DISTAL END OF INCISION PUTTING OUT LIGHT SS DRAINAGE, TELE MONITOR IN PLACE, CALL JOHNSON IN REACH AND BED LICKED IN LOWEST POSITION.
[2021-08-02] MEDS ORDERED: TRAMADOL HCL50 MG PO (10:14)
[2021-08-02] MEDS ORDERED: PANTOPRAZOLE SO40 M1 PO (10:14)
[2021-08-02] MEDS ORDERED: ALPRAZOLAM0.25 MG PO (10:14)
[2021-08-02] MEDS ORDERED: AMOX/K CLAV875 M1 PO (10:16)
[2021-08-02] MEDS ORDERED: DOXYCYCL HYC100 MG PO (10:16)
--- NOTE | 2021-08-02 12:16 | NUR ---
S- Pt reported feeling better this am. Family member in to see her last pm. 0- Spoke with nursing prior to treatment, stated pt had meds for BP earlier. Treatment consisted of AROM to BLE in supine 2 x 10 reps including heelslide, hip abd/add, hip IR/ER, TKE, active ankle ROM. Passive heelcord and hamstring stretch done x3 reps 5 sec hold. She moved semi reclined to sitting over edge of bed using bed rail and SBA. Pt was able to sit on edge of bed with SBA/CGA, she tends to lean back wards. Transfer stand pivot to BS chair with Mod assist x 1. She was able to stand from recliner with mod assist x 1 and maintain standing x 30 sec with min assist. Gait bet and non skid socks on with mobiltiy. BP 120/80 to 120/70, 02 sats low 90's, HR 70 A- Pt moving better today and able to wt bear on LEs without buckling noted. [facility] 8 ECF P- will follow.
--- NOTE | 2021-08-02 12:19 | NUR ---
SITTING UP IN RECLINER AT THIS TIME HAVING MEAL, NO NEW COMPLAINS, REPORTE SHE IS FEELING MUCH BETTER, CALL JOHNSON IN REACH.
--- NOTE | 2021-08-02 16:07 | NUR ---
ASSISTED BACK TO BED BY PHYSICAL THERAPIST AND SLEEPING AT THIS TIME, BREATHING EVEN AND NON-LABORED, NO SIGN DISCOMFORT, CALL JOHNSON IN REACH.
--- NOTE | 2021-08-02 20:10 | NUR ---
PT RESTING IN BED WATCHING TV, NO SIGNS OF DISTRESS NOTED, DISCUSSED POC, NOTED EDEMA TO HANDS BILAT, APPLIED PILLOWS FOR ELEVATION, +3 EDEMA TO BLE, PURE WICK IN PLACE. WOUND VAC TO ABD, DRAINAGE BLOODY. PT VOICES NO NEEDS OR COMPLAINTS AT THIS TIME, ASSESSMENT COMPLETED, PT MEDICATED PER OCT. CALL LIGHT IN REACH,CONTINUE TO MONITOR.
--- NOTE | 2021-08-02 23:34 | NUR ---
PT RESTING IN BED DISCUSSED ANTIBIOTIC, PT STATES SHE FEELS ANXIOUS, PT MEDICATED PER MAR. NO SIGNS OF DISTRESS NOTED, RESP EVEN AND UNLABORED. CALL LIGHT IN REACH,CONTINUE TO MONITOR.
[2021-08-03] VITALS (7 sets, daily range): BP systolic 131–182; BP diastolic 55–85
--- NOTE | 2021-08-03 05:00 | NUR ---
PT RESTING IN BED, NO SIGNS OF DISTRESS NOTED, RESP EVEN AND UNLABORED. ATTMEPTED TO DRAW AM LABS FROM CENTRAL LINE, NO BLOOD RETURN NOTED, COMMUTATOR UNDERCUTTER NOTIFIED FOR VENIPUNCURE, PT VOICES NO NEEDS OR COMPLAINTS AT THIS TIME, CALL LIGHT IN REACH,CONTINUE TO MONITOR.
[2021-08-03 05:13] LABS: HEMATOCRIT 24.1 % (37.0-47.0); HEMOGLOBIN 7.8 g/dl (12.0-16.0); MEAN CELL VOLUME 93.4 fL CALC (80.0-100.0); MEAN CORPUSCULAR HGB 30.2 pG CALC (26.0-32.0); MEAN CORPUSCULAR HGB CONC 32.4 g/dL CAL (32.0-36.0); RED BLOOD COUNT 2.58 mill/uL (4.20-5.60); RED CELL DISTRI WIDTH 14.7 % (11.5-15.5)
[2021-08-03 05:32] LABS: ANION GAP 3 (6-22 (CALC)); BUN 12 mg/dL (8-23); BUN/CREATININE RATIO 13 (12-20 (CALC)); CARBON DIOXIDE 32 mmol/l (22-30); CHLORIDE 107 mmol/l (95-108); GFR 53 ML/MIN (>=60 (CALC)); GFR FOR AFR.AMER. > 60 ML/MIN (>=60 (CALC)); POTASSIUM 3.5 mmol/l (3.5-5.1); SODIUM 139 mmol/l (137-146)
--- NOTE | 2021-08-03 07:28 | NUR ---
S: SACHA GRACIA is a 80 F who presents witH pneumonia. She has a history of heart disease and hypertension. All medications in patient's chart were reviewed. O: VS: BP 132/55 MMHG , P 65 BPM , RR 16 BPM,T 97.3F W 110.5 KG, HT 59 INCHES, Scr=1 ML/MIN, CrCl=43.5 ML/MIN A: Final body fluid culture completed on 07/26/2021 shows no growth. Final blood cultures completed on 07/26/2021 shows not growth. P: Patient is on Zosyn 3.375 MG IV Q6H. Vancomycin ordered for pharmacy to dose. Change Vancomycin dose to 1 G IV Q12H. Vancomycin trough is drawn before the 4th dose on 08/04/2021 @ 2030. Vancomycin goal trough is between <15-20 mcg/ml>. Pharmacy will follow and or advise on antibiotics use as needed.
--- NOTE | 2021-08-03 08:00 | NUR ---
REPORT RECEIVED FROM ADONAY AGUILAR. PT AWAKE, ALERT AND APPROPRIATE. VSS. PT DENIES PAIN. ASSESSMENT PREFORMED. CALL LIGHT WITHIN REACH. PT INSTRUCTED PT TO CALL FOR ASSISTANCE, STATES UNDERSTANDING.
--- NOTE | 2021-08-03 12:00 | NUR ---
PHYSICAL THERAPY IN TO SEE PT. PT EAGER TO PARTICIPATE IN THERAPY. VOICES NO CONCERNS AT THIS TIME. VSS, CALL LIGHT WITHIN REACH. TOLERATING DOSE OF LASIX WELL. PUREWICK IN PLACE AND FUNCTIONING PROPERLY. INSTRUCTED PT TO CALL FOR ASSISTANCE, STATES UNDERSTANDING.
--- NOTE | 2021-08-03 12:25 | NUR ---
S- pt stated she did not want to eat lunch presently, stomach still full from breakfast. Pt requesting OOB to chair. 0- Spoke with nursing and complex case manager prior to treatment. Pt awaiting auth for rehab. Supine ex continued with instructions required 2 x10 reps: including: heel slide, hip abd/add, hip IR/ER and active ankle DF/PF. Pt moved from semi recline position to sitting on edge of bed with verbal instructions and bed rails. Sitting on edge of bed with SBA but no LOB noted. Stand pivot transfer with min/mod assist with encouragement and verbal instruction. She stood x 1 and was able to take 3-4 steps forward and back with min assist using wide RW. Gait belt and non skid socks in place and nursing aware and ok with pt being left in chair. BP 110/50, HR 73-83, 02 sats 91 to 97%. 0- [id number]. Pt for first time able to take several steps with walker. time spent with pt 40 min. P- Will follow until pt is transferred to ECF.
--- NOTE | 2021-08-03 15:48 | NUR ---
PT SITTING IN BS CHAIR, DENIES NEEDS OR CONCERNS. VSS CALL LIGHT WITHIN REACH. INSTRUCTED PT TO CALL FOR ASSISTANCE, VERBALIZES UNDERSTANDING.
--- NOTE | 2021-08-03 21:20 | NUR ---
PT RESTING IN BED WITH EYES CLOSED EASILY AROUSED TO VERBALI STIMULI, NO SIGNS OF DISTRESS NOTED, RESP EVEN AND UNLABORED. PT ALERT AND ORIENTED X3, DISCUSSED POC, GENERALIZED +3 PITTING EDEMA TO EXTREMITIES, IS AT BEDSIDE ENCOURAGED ITS USE WHILE AWAKE, DRESSING TO ABD CDI WITH WOUND VAC WITH CONTINUOUS SUCTION AT 125MMHH NOTED BLOODY DRAINAGE, ALEXANDER TO ABD CDI/SURVEILLANCE ANALYST,TRIPLE LUMEN CENTRAL LINE TO L SUBCAVIAN FLUSHED WELL NO BLOOD RETURN, INITATIATED IV VANCO, PT VOICES NO NEEDS OR COMPLAINTS AT THIS TIME, CALL LIGHT IN REACH,CONTINUE TO MONITOR.
[2021-08-04] VITALS (7 sets, daily range): BP systolic 138–169; BP diastolic 60–72
--- NOTE | 2021-08-04 | NUR ---
PT RESTING IN BED, WITH EYES CLOSED, NO SIGNS OF DISTRESS NOTED, RESP EVEN AND UNLABORED. CALL LIGHT IN REACH,CONTINUE TO MONITOR.
--- NOTE | 2021-08-04 04:00 | NUR ---
PT RESTING IN BED WITH EYES CLOSED NO SIGNS OF DISTRESS NOTED, RESP EVEN AND UNLABORED. CALL LIGHT IN REACH,CONTINUE TO MONITOR.
[2021-08-04 05:15] LABS: HEMATOCRIT 26.5 % (37.0-47.0); HEMOGLOBIN 8.4 g/dl (12.0-16.0); MEAN CORPUSCULAR HGB 30.1 pG CALC (26.0-32.0); MEAN CORPUSCULAR HGB CONC 31.7 g/dL CAL (32.0-36.0); RED BLOOD COUNT 2.79 mill/uL (4.20-5.60); RED CELL DISTRI WIDTH 14.8 % (11.5-15.5)
[2021-08-04 05:24] LABS: CREATININE 1.2 mg/dL (0.5-1.0); MAGNESIUM 2.1 mg/dL (1.6-2.3); POTASSIUM 3.5 mmol/l (3.5-5.1)
--- NOTE | 2021-08-04 07:15 | NUR ---
PATIENT LAYING IN BED AT THIS TIME. PATIENT STATES "I FEEL PRETTY GOOD". PATIENT IS ALERT AND ORIENTED X 3. HOME HEALTH TRAVEL PT DONE ABDOMINAL WALL SURGICAL SITE IS DRY AND INTACT WITH WOUND VAC ADHERED TO LOWER INCISION AND DRAINING AT THIS TIME. PATIENT DEINES ANY PAIN. PATIENT PRESENTS WITH 3+ EDEMA ANASARCA IN BILATERAL ARMS AND HANDS PATIENT HAS PURWICK IN PLACE AND DRAINING YELLOW URINE AT THIS TIME. PATIENT HAS TELE MONITOR IN PLACE AND BEING MONITORED BY ED AT THIS TIME. SIDERAILS ARE UP X 3 CALL LIGHT IS WIHTHIN REACH SCD'S ARE IN PLACE. WILL CONTINUE TO MONITOR.
--- NOTE | 2021-08-04 12:01 | NUR ---
PATIENT RESTING IN BED AT THIS TIME EATING LUNCH. WOUND VAC IN PLACE AT THIS TIME AND DRAINING. PATIENT DEINES ANY PAIN CURRENTLY SIDERAILS ARE UP CALL LIGHT WITHIN REACH PURWICK IN PLACE AND DRAINING YELLOW URINE.
--- NOTE | 2021-08-04 13:28 | NUR ---
WOUND VAC DRESSING REMOVED AND CHANGED VIA ASEPTIC TECHNIQUE BY NURSE LANDRUM AT THIS TIME. WOUND VAC SUCTION READING 125 AND NO AIR DETECTED. INCISIONAL LINE WITH 10 ALEXANDER INTACT AT THIS TIME. WOUND PINK AND BEEFY IN APPEARANCE AND EDGES CIRCULAR THERE WAS NO BLEEDING NOTED AT THIS TIME. PATIENT TOLERATED PROCEEDURE WIHTOUT PAIN ON COMPLAINTS AT THIS TIME.
--- NOTE | 2021-08-04 13:50 | NUR ---
PATIENT LEFT SUBCAVIAN TRIPLE LUMENS LINES FLUSHED AT THIS TIME. ALL LINES FLUSED EASY AND ONLY WHITE LINE RETURNED BLOOD AT THIS TIME. PATINET TOLERATED WELL.
--- NOTE | 2021-08-04 15:33 | NUR ---
PATIENT RESTING IN BED DENIES ANY PAIN AT THIS TIME. WOUND VAC IN PLACE AND SUCTION IS SET 125. PATIENT EATING ICE CREAM AT THIS TIME TELE MONITOR IN PLACE AND BEING MONITORED BY ED. PURWICK IN PLACE AND DRAINING 500ML OF YELLOW URINGE AT THIS TIME. SIDERAILS ARE UP AND CALL LIGHT IS WITHIN REACH.
--- NOTE | 2021-08-04 19:21 | NUR ---
PATIENT ALERT AND ORIENTED. ABLE TO MAKE NEEDS KNOWN. NO COMPLAINTS OF PAIN OR DISCOMFORT NOTED. CALL LIGHT AND BELONGINGS REMAIN IN REACH.
[2021-08-05 00:15] VITALS: BP 140/72
--- NOTE | 2021-08-05 00:15 | NUR ---
PATIENT IN BED RESTING. BM NOTED. [facility] PROVIDED. NEW PUREWICK IN PLACE. COMPLETE LINEN CHANGE TO BED DONE. NO COMPLAINTS OF PAIN OR DISCOMFORT NOTED. GAVE PATIENT ICE CHIPS PER REQUEST. CALL LIGHT AND BELONGINGS REMAIN IN REACH.
--- NOTE | 2021-08-05 02:57 | NUR ---
PATIENT COMPLAINED OF ANXIETY STILL BEING IN THE HOSPITAL. GAVE PRN XANAX PER PATIENT REQUEST. CALL LIGHT AND BELONGINGS REMAIN IN REACH.
[2021-08-05 04:00] VITALS: BP 147/62
--- NOTE | 2021-08-05 04:15 | NUR ---
OXYGEN SATURATION AT 87% RA. 1L OXYGEN APPLIED VIA NC. OXYGEN SATURATION UP TO 98%. NO DISTRESS NOTED. CALL LIGHT AND BELONGINGS REMAIN IN REACH.
--- NOTE | 2021-08-05 04:33 | NUR ---
02 SAT AT 87% ON RA. NO DISTRESS NOTED TO PATIENT. 1L O2 APPLIED VIA NC. O2 SAT TO 98%.
[2021-08-05 04:55] LABS: HEMATOCRIT 25.5 % (37.0-47.0); MEAN CELL VOLUME 94.1 fL CALC (80.0-100.0); MEAN CORPUSCULAR HGB 29.5 pG CALC (26.0-32.0); MEAN CORPUSCULAR HGB CONC 31.4 g/dL CAL (32.0-36.0); RED BLOOD COUNT 2.71 mill/uL (4.20-5.60); RED CELL DISTRI WIDTH 14.7 % (11.5-15.5)
[2021-08-05 05:16] LABS: BILIRUBIN, TOTAL 0.3 mg/dL (0.0-1.4); CREATININE 1.1 mg/dL (0.5-1.0); POTASSIUM 3.3 mmol/l (3.5-5.1)
[2021-08-05 07:00] VITALS: BP 147/62
--- NOTE | 2021-08-05 07:00 | NUR ---
PATIENT LAYING IN BED AT THIS TIME. PATIENT ALERT AND ORIENTED AND SPO2 ON ROOM AIR IS 98%. PATIENT DEINES ANY PAIN CURRENTLY AND ABDOMINAL WALL APPROXIMATE WITH 10 ALEXANDER AND WOUND VAC IN PLACE AT SUCTION OF 125MMHG TO BOTTOM OF INCISIONAL LINE. PATIENT PRESENTS WITH 3+ GENERALIZED EDEMA PRIMARILY IN ARMS AND HANDS DUE TO ANASARCA. LUNG AWAN REMAIN CLEAR. SIDERAILS ARE UP CALL LIGHT WIHTIN REACH.
[2021-08-05 10:19] VITALS: BP 120/68
--- NOTE | 2021-08-05 11:51 | NUR ---
PATIENT RESTING IN BED AT THIS TIME DENEIS ANY PIAN AND OR NEEDS. WOUND VAC IN PLACE AND STILL REMAINS AT SUCTION 125MM MG. SIDERAILS ARE UP CALL LIGHT WITHIN REACH. PURWICK IN PLACE.
[2021-08-05 15:51] VITALS: BP 119/68
--- NOTE | 2021-08-05 15:55 | NUR ---
PATIENT LAYING IN BED AT THIS TIME DENIES ANY PAIN AND OR NEEDS. SIDERAILS ARE UP CALL LIGHT IS WIHTIN REACH. TELE MONITOR IN PLACE AND BEING MONITORED BY ED AT THIS TIME.
[2021-08-05 19:20] VITALS: BP 164/70
--- NOTE | 2021-08-05 19:20 | NUR ---
RESTING IN BED QUIETLY. NO COMPLAINTS VOICED AT THIS TIME. ALERT AND ORIENTED. NO SIGNS OF DISTRESS. NO COMPLAINTS OF PAIN. WOUNDVAC PATENT. ASSESSMENT COMPLETE. CALL LIGHT AND BELONGINGS REMAIN IN REACH.
[2021-08-06 00:30] VITALS: BP 141/65
--- NOTE | 2021-08-06 00:30 | NUR ---
RESTING IN BED QUIETLY. NO COMPLAINTS VOICED AT THIS TIME. NO SIGNS OF DISTRESS NOTED. CALL LIGHT AND BELONGINGS REMAIN IN REACH.
[2021-08-06 04:15] VITALS: BP 145/67
--- NOTE | 2021-08-06 04:15 | NUR ---
PATIENT RESTING IN BED QUIETLY. VS OBTAINED. OXYGEN SAT ON ROOM AIR AT 86%. APPLIED O2 PER NURSING JUDGEMENT 2L VIA NC. OXYGEN SAT INCREASED TO 93%. PATIENT APPEARS TO MOUTH BREATHE. NO COMPLAINTS VOICED.
[2021-08-06 05:34] LABS: HEMATOCRIT 27.7 % (37.0-47.0); HEMOGLOBIN 8.7 g/dl (12.0-16.0); MEAN CELL VOLUME 93.9 fL CALC (80.0-100.0); MEAN CORPUSCULAR HGB 29.5 pG CALC (26.0-32.0); MEAN CORPUSCULAR HGB CONC 31.4 g/dL CAL (32.0-36.0); RED BLOOD COUNT 2.95 mill/uL (4.20-5.60); RED CELL DISTRI WIDTH 14.9 % (11.5-15.5)
[2021-08-06 06:09] LABS: ANION GAP 4 (6-22 (CALC)); BUN 18 mg/dL (8-23); BUN/CREATININE RATIO 17 (12-20 (CALC)); CARBON DIOXIDE 35 mmol/l (22-30); CHLORIDE 104 mmol/l (95-108); GFR 53 ML/MIN (>=60 (CALC)); GFR FOR AFR.AMER. > 60 ML/MIN (>=60 (CALC)); MAGNESIUM 2.3 mg/dL (1.6-2.3); POTASSIUM 3.6 mmol/l (3.5-5.1); SODIUM 139 mmol/l (137-146)
--- NOTE | 2021-08-06 07:00 | NUR ---
REPORT RECEIVED FROM CHARLIERN
[2021-08-06 07:49] VITALS: BP 142/72
--- NOTE | 2021-08-06 07:50 | NUR ---
PT RESTING IN SEMI FOWLERS POSITION,A&O X3;VS OBTAINED AND ASSESSMENT COMPLETED;PT DENIES ANY CURRENT PAIN OR DISCOMFORTS,PAIN SCALE AND REPORTING EDUCATED;PT POD #17 PARTIAL COLECTOMY;RESPIRATIONS EVEN AND UNLABORED ON O2 @ 2L VIA NC, PT IS NOT HOME DEPENDENT AND DE-SATS IN THE NIGHT TO 80'S;CLEAR/DIMINISHED LUNG NOTED;ABDOMEN DISTENDED/SOFT ON PALPATION AND ACTIVE IN ALL 4 QUADRANTS;ABDOMINAL WOUND VAC RUNNING AT 125MMHG WITH EASE;ALEXANDER NOTED TO MIDLINE INCISION;WEAK PEDAL PULSES WITH +3 BLE EDEMA NOTED,ENCOURAGED ELEVATION OF BLE;TELE MONITORING IN PLACE;RT TL SUBCLAVIAN FLUSHED AND PATENT,SITE APPEARS HEALTHY;PT DENIES ANY ADDITIONAL NEEDS AND IS ENCOURAGED TO CALL FOR ASSISTANCE IF NEEDED;FALL PRECAUTIONS IN PLACE WITH BED IN THE LOWEST POSITION AND CALL LIGHT IN REACH;WILL CONTINUE TO MONITOR
--- NOTE | 2021-08-06 10:20 | NUR ---
PHYSICAL THERAPY AT BEDSIDE WORKING WITH PT.
--- NOTE | 2021-08-06 10:35 | NUR ---
AND JESS ANRP AT BEDSIDE DISCUSSING POC.
[2021-08-06 10:48] VITALS: BP 134/81
--- NOTE | 2021-08-06 11:05 | NUR ---
PT RESTING IN RECLINER;RESPIRATIONS EVEN AND UNLABORED ON O2 @ 2L VIA NC;PT DENIES ANY CURRENT PAIN OR NEEDS;TELE MONITORING IN PLACE;LEFT TL CATHETER INTACT;WOUND VAC RUNNING AT 125MMHG WITH EASE;PURWICK CATHETER IN PLACE;COVID19 NASAL SWAB OBTAINED AT THIS TIME PER ORDER AND PT TOLERATED WELL;PT ENCOURAGED TO CALL FOR ASSISTANCE IF NEEDED;CALL LIGHT IN REACH;WILL CONTINUE TO MONITOR
--- NOTE | 2021-08-06 11:24 | NUR ---
S- pt reported some soreness in LB when sitting. Stated she was not OOB to chair yesterday. 0- Pt resting in bed, eyes closed, responded to light touch. Treatment consisted of ther ex in supine, bed mobility and transfers. LE ex performed A/AAROM 2 x 10 reps for heelside, hip add/abd, hip IR/ER ankle DF/PF. Gentle hamstring and heelcord stretches done per therapist. Rolling side to side using bed rails and min/mod assist of 1, supine to sitting with use of bed rail and CGA to min assist. Sitting balance on edge of bed with SBA. Transferring to bedside chair (stand pivot) required mod assist. Sitting to standing with RW with mod assist, 1st attempt pt unable to maintain, second stand, she was able to maintain x 2 min. Wt shifting and small stepping forward/backing done while standing. Pt BP stab at 100/60-50, 02 sats in upper 90's on 02. HR 71 initially increased after standing to 120 whick resolved back to 80, with in 5 min. 0- Pt with deconditioning and AMPAC of 9 ECF P- will follow [facility]
--- NOTE | 2021-08-06 11:35 | NUR ---
addendum time spent with pt 50 min.
--- NOTE | 2021-08-06 12:57 | NUR ---
ALL DISCHARGE INSTRUCTIONS PROVIDED AT THIS TIME;PT INSTRUCTED TO F/U WITH AND AT DISCHARGE FROM REHAB, F/U WITH NEPHROLOGY FOR RT RENAL MASS, COMPLETE ADDITIONAL ANX, AND CONTINUE ROUTINE HOME MEDICATION;PT VERBALIZES UNDERSTANDING AND DENIES ANY ADDITIONAL QUESTIONS OR NEEDS;[facility] TO TRANSPORT PT TO [facility] AT APPROX 1500;PT ENCOURAGED TO CALL FOR ASSISTANCE IF NEEDED;FALL PRECAUTIONS IN PLACE WITH CALL LIGHT IN REACH;WILL CONTINUE TO MONITOR
--- NOTE | 2021-08-06 13:44 | NUR ---
LEFT TL SUBCLAVIAN REMOVED WITH CATHETER INTACT BY DELMI JAIMES. PT TOLERATED WELL.
--- NOTE | 2021-08-06 13:45 | NUR ---
TLC TO LEFT SUBCLAVIAN REMOVED AT THIS TIME. OCCLUSIVE DRESSING APPLIED. PT TOLERATED WELL.
[2021-08-06 14:09] VITALS: BP 136/80
--- NOTE | 2021-08-06 14:20 | NUR ---
WOUND VAC REMOVED AT THIS TIME AND WET/DRY DRESSING APPLIED FOR TRANSPORT TO [facility], PT TOLERATED WELL;CALL LIGHT IN REACH;WILL CONTINUE TO MONITOR
--- NOTE | 2021-08-06 15:30 | NUR ---
PT OOB RESTING IN RECLINER;RESPIRATIONS EVEN AND UNLABORED ON O2 @ 2L VIA NC;PT DENIES ANY CURRENT PAIN OR NEEDS;AWAITING [facility] TO ARRIVE FOR TRANSPORTATION TO REHAB;PT ENCOURAGED TO CALL FOR ASSISTANCE IF NEEDED;CALL LIGHT IN REACH;WILL CONTINUE TO MONITOR
--- NOTE | 2021-08-06 16:12 | NUR ---
Discharge instructions given. Patient verbalizes understanding of same. Discharged in stable condition via [facility] with *Other. All belongings sent with pt. PT TRANSPORTED TO [facility] IN STABLE CONDITION VIA ACCOMPANIED BY [facility] REH[facility] STAFF MEMBER FOR TRANSPORT TO REHAB. ALL BELONGINGS LEFT WITH PT. PT ALSO LEFT WITH OXYGEN @ 2L VIA NC.
--- NOTE | 2021-08-06 16:23 | NUR ---
REPORT CALLED TO ELIANA AT [facility].
== END 2021-08-06 16:10 | DRG 329 ==
LOC: ED 22:20 → ED-I 07-17 03:35 → ED 07-17 03:51 → MS2 07-17 03:52 → ICU 07-17 11:30 → MS2 07-22 11:00
PROVIDERS: Hospitalist; Internal Medicine; Nurse Practitioner; Nurse Practitioner Family; Surgery; ADMIT Internal Medicine; ATTEND Internal Medicine
PROC: 0DBL0ZZ Excision of Transverse Colon, Open Approach (ICD-10-PCS; principal; 2021-07-17)
PROC: 0WQF0ZZ Repair Abdominal Wall, Open Approach (ICD-10-PCS; 2021-07-17)
PROC: 0WJF4ZZ Inspection of Abdominal Wall, Percutaneous Endoscopic Approach (ICD-10-PCS; 2021-07-17)
PROC: 02HV33Z Insertion of Infusion Device into Superior Vena Cava, Percutaneous Approach (ICD-10-PCS; 2021-07-17)
PROC: 0J980ZZ Drainage of Abdomen Subcutaneous Tissue and Fascia, Open Approach (ICD-10-PCS; 2021-07-27)
PROC: 0JD83ZZ Extraction of Abdomen Subcutaneous Tissue and Fascia, Percutaneous Approach (ICD-10-PCS; 2021-07-30)
PROC: 2W03X6Z Change Pressure Dressing on Abdominal Wall (ICD-10-PCS; 2021-07-30)
PROC: 05H633Z Insertion of Infusion Device into Left Subclavian Vein, Percutaneous Approach (ICD-10-PCS; 2021-07-30)
DX: K43.1 Incisional hernia with gangrene (principal); J18.9 Pneumonia, unspecified organism; E87.2 Acidosis; N17.9 Acute kidney failure, unspecified; T81.41XA Infection following a procedure, superficial incisional surgical site, initial encounter; L02.211 Cutaneous abscess of abdominal wall; C64.1 Malignant neoplasm of right kidney, except renal pelvis; K92.0 Hematemesis; I11.0 Hypertensive heart disease with heart failure; I50.9 Heart failure, unspecified; I25.10 Atherosclerotic heart disease of native coronary artery without angina pectoris; F41.9 Anxiety disorder, unspecified; F03.90 Unspecified dementia, unspecified severity, without behavioral disturbance, psychotic disturbance, mood disturbance, and anxiety; Y83.6 Removal of other organ (partial) (total) as the cause of abnormal reaction of the patient, or of later complication, without mention of misadventure at the time of the procedure; Z90.49 Acquired absence of other specified parts of digestive tract; Z90.710 Acquired absence of both cervix and uterus; Z20.822 Contact with and (suspected) exposure to COVID-19
CPT/HCPCS: J0692; J1650; J2060; J3370; Q9967; S0164; S0166

== ENCOUNTER 2021-10-23 16:14 | Emergency (ER) | payer MEDICARE ==
[~2021-10-23] VITALS: Ht 149.9 cm; Wt 80.0 kg
[~2021-10-23 16:14] MED LIST: ALPRAZOLAM0.25 MG PO; AMOX/K CLAV875 M1 PO; CVS IBUPROFEN200 M1; DOXYCYCL HYC100 MG PO; FUROSEMIDE20 MG PO; GABAPENTIN100 MG PO; LOSARTAN POTASS50 MG PO; NORVASC5 M1 PO; PANTOPRAZOLE SO40 M1 PO; SPIRONOLACTONE50 MG PO; TRAMADOL HCL50 MG PO
[2021-10-23 16:48] VITALS: BP 98/38
[2021-10-23] MEDS ORDERED: PREVACID30 M2 PO (16:50)
[2021-10-23 18:04] LABS: IMMATURE GRANULOCYTES 0.4 % (0.0-5.0); MEAN CORPUSCULAR HGB 27.4 pG CALC (26.0-32.0); MEAN CORPUSCULAR HGB CONC 31.5 g/dL CAL (32.0-36.0); NEUT# 11.09 thou/uL (2.00-7.15); RED BLOOD COUNT 3.91 mill/uL (4.20-5.60); RED CELL DISTRI WIDTH 14.4 % (11.5-15.5)
[2021-10-23 18:05] LABS: HEMOGLOBIN 10.7 g/dl (12.0-16.0)
[2021-10-23 18:17] LABS: BILIRUBIN, TOTAL 0.2 mg/dL (0.0-1.4); CREATININE 2.3 mg/dL (0.5-1.0); POTASSIUM 4.9 mmol/l (3.5-5.1)
[2021-10-23 18:18] LABS: ALBUMIN 3.9 g/dL (3.2-5.0); TOTAL PROTEIN 7.7 g/dL (6.3-8.2)
[2021-10-23 19:44] LABS: URINE BILIRUBIN - DIPSTICK NEGATIVE (NEGATIVE); URINE BLOOD DIPSTICK NEGATIVE (NEGATIVE); URINE COLOR YELLOW; URINE GLUCOSE - DIPSTICK NEGATIVE (NEGATIVE); URINE KETONE NEGATIVE (NEGATIVE); URINE LEUK ESTERASE NEGATIVE (NEGATIVE); URINE PH 5.5 (4.5-8.0); URINE PROTEIN - DIPSTICK NEGATIVE (NEG-TRACE); URINE UROBILINOGEN - DIPSTICK 0.2 E.U./dL (0.2)
[2021-10-23 19:56] LABS: URINE NITRITE - DIPSTICK NEGATIVE (Negative)
== END 2021-10-23 22:40 | disposition short-term general hospital (02) ==
LOC: ED 16:14
PROVIDERS: Emergency Medicine
DX: S72.001A Fracture of unspecified part of neck of right femur, initial encounter for closed fracture (principal); S50.311A Abrasion of right elbow, initial encounter; M25.561 Pain in right knee; I11.0 Hypertensive heart disease with heart failure; I50.9 Heart failure, unspecified; W01.0XXA Fall on same level from slipping, tripping and stumbling without subsequent striking against object, initial encounter; Y92.008 Other place in unspecified non-institutional (private) residence as the place of occurrence of the external cause